=== PATIENT | male | born 1940 | race Caucasian/White ===

== ENCOUNTER 2022-01-16 21:33 | Inpatient (IN) | payer OTHER ==
[2022-01-16] MEDS ORDERED: amLODIPine BESYLATE 5 MG TABLET (FP) PO ONE (23:29)
[2022-01-17] MEDS ORDERED: COLCHICINE 0.6 MG TAB PO ONE (00:23)
[2022-01-17] MEDS ORDERED: ceFAZolin 2 GRAM PREMIX BAG IVPB ONE (00:26)
[2022-01-17] MEDS ORDERED: COLCHICINE 0.6 MG TAB ONE (00:45)
[2022-01-17 00:48] LABS: BASO % 0.5 % (0-2.0); EOS % 0.6 % (0-4.5); HEMATOCRIT 38.2 % (35.4-49); HEMOGLOBIN 13.2 GM/dL (11.7-16.9); LYMPH % 10.9 % (8-40); MCHC 34.7 g/dl (32.0-35.9); MEAN CELL VOLUME 89.3 fl (80-96); MEAN PLT VOLUME 9.7 fl (7.5-11.1); MONO % 10.5 % (3.8-10.2); NEUT % 77.5 % (42.8-82.8); PLATELET COUNT 224 10^3/uL (134-434); RBC 4.27 M/mm3 (4.00-5.60); RDW 12.8 % (11.9-15.9); WHITE BLOOD COUNT 10.1 K/mm3 (4.0-10.0)
[2022-01-17 01:18] LABS: ALBUMIN 3.9 g/dl (3.4-5.0)
[2022-01-17 01:19] LABS: BLOOD UREA NITROGEN 25.2 mg/dL (7-18)
[2022-01-17 01:21] LABS: URIC ACID 3.3 mg/dL (2.6-7.2)
[2022-01-17 01:23] LABS: BILIRUBIN,TOTAL 0.7 mg/dL (0.2-1); TOT PROT 7.8 g/dl (6.4-8.2)
[2022-01-17 01:51] LABS: ERYTHROCYTE SEDIMENTATION RATE 79 mm/hr (0-20)
[2022-01-17] MEDS ORDERED: KETOROLAC TROMETHAMINE 15 MG/ML VIAL IVPUSH ONE (02:55)
[2022-01-17] MEDS ORDERED: CEFAZOLIN SODIUM 2 GM in DEXTROSE 5%-WATER 100 ML IVPB ONE (03:00)
[2022-01-17] MEDS ORDERED: ACETAMINOPHEN 325 MG TABLET (FP) PO PRN (03:47)
[2022-01-17] MEDS ORDERED: KETOROLAC TROMETHAMINE 15 MG/ML VIAL ONE (04:38)
[2022-01-17] MEDS: ENOXAPARIN NA (PORCINE) 40 MG/0.4 ML DISP.SYRIN SQ SCH (09:32)
[2022-01-17 10:23] VITALS: BMI 23.3
[2022-01-17] MEDS ORDERED: INSULIN (NOVOLOG) ASPART 100 UNITS/ML 10ML VIAL ONE (11:44)
[2022-01-17] MEDS: INSULIN SLIDING SCALE (NOVOLOG) 1 VIAL SQ SCH ×2 (11:45→17:20)
[2022-01-17 12:52] LABS: BASO % 0.6 % (0-2.0); EOS % 1.3 % (0-4.5); HEMATOCRIT 32.7 % (35.4-49); HEMOGLOBIN 11.7 GM/dL (11.7-16.9); LYMPH % 13.6 % (8-40); MCH 31.6 pg (25.7-33.7); MCHC 35.7 g/dl (32.0-35.9); MEAN CELL VOLUME 88.5 fl (80-96); MEAN PLT VOLUME 9.4 fl (7.5-11.1); MONO % 13.4 % (3.8-10.2); NEUT % 71.1 % (42.8-82.8); PLATELET COUNT 192 10^3/uL (134-434); RBC 3.69 M/mm3 (4.00-5.60); RDW 12.5 % (11.9-15.9); WHITE BLOOD COUNT 8.5 K/mm3 (4.0-10.0)
[2022-01-17 13:12] LABS: CALCIUM 8.4 mg/dL (8.5-10.1)
[2022-01-17 13:13] LABS: BLOOD UREA NITROGEN 25.8 mg/dL (7-18)
[2022-01-17 13:17] LABS: BILIRUBIN,TOTAL 0.5 mg/dL (0.2-1); TOT PROT 6.1 g/dl (6.4-8.2)
[2022-01-17 13:19] LABS: ALBUMIN 2.9 g/dl (3.4-5.0)
[2022-01-17] MEDS ORDERED: CEFAZOLIN 2 GM in DEXTROSE 5%-WATER 100 ML IVPB SCH (13:53)
[2022-01-17] MEDS ORDERED: ceFAZolin SODIUM 1 GM VIAL ONE ×2 (16:47→21:15)
[2022-01-17] MEDS ORDERED: DEXTROSE 5%-WATER 100 ML IVPB ONE (16:47)
[2022-01-17] MEDS: ASPIRIN 81 MG CHEWABLE TABLETS PO SCH (17:02)
[2022-01-17] MEDS: CEFAZOLIN 2 GM in SODIUM CHLORIDE 100 ML IVPB SCH (17:24)
[2022-01-17] MEDS ORDERED: CEFAZOLIN 2 GM in DEXTROSE 5%-WATER - 50 ML IVPB SCH (18:00)
[2022-01-17] MEDS ORDERED: SODIUM CHLORIDE 100 ML IVPB ONE (21:15)
[2022-01-17] MEDS: ATORVASTATIN CA 20 MG TABLET (FP) PO SCH (21:39)
[2022-01-17] MEDS: INSULIN (LEVEMIR) 100 UNITS/ML UNITS SQ SCH (21:39)
[2022-01-18] MEDS ORDERED: MELATONIN 5 MG TABLETS PO ONE (01:06)
[2022-01-18] MEDS ORDERED: SODIUM CHLORIDE 100 ML IVPB ONE ×2 (01:11→09:26)
[2022-01-18] MEDS ORDERED: ceFAZolin SODIUM 1 GM VIAL ONE ×2 (01:11→09:26)
[2022-01-18] MEDS: CEFAZOLIN 2 GM in SODIUM CHLORIDE 100 ML IVPB SCH ×2 (01:24→09:36)
[2022-01-18] MEDS: INSULIN (LEVEMIR) 100 UNITS/ML UNITS SQ SCH ×2 (06:21→22:41)
[2022-01-18] MEDS: INSULIN SLIDING SCALE (NOVOLOG) 1 VIAL SQ SCH ×3 (06:21→17:25)
[2022-01-18] MEDS: ASPIRIN 81 MG CHEWABLE TABLETS PO SCH (09:36)
[2022-01-18] MEDS: ENOXAPARIN NA (PORCINE) 40 MG/0.4 ML DISP.SYRIN SQ SCH (09:36)
[2022-01-18 11:06] LABS: BASO % 0.8 % (0-2.0); EOS % 1.8 % (0-4.5); HEMATOCRIT 36.4 % (35.4-49); HEMOGLOBIN 12.5 GM/dL (11.7-16.9); MCH 30.5 pg (25.7-33.7); MCHC 34.4 g/dl (32.0-35.9); MEAN CELL VOLUME 88.7 fl (80-96); MEAN PLT VOLUME 10.2 fl (7.5-11.1); MONO % 13.6 % (3.8-10.2); NEUT % 65.8 % (42.8-82.8); PLATELET COUNT 220 10^3/uL (134-434); RDW 12.5 % (11.9-15.9); WHITE BLOOD COUNT 7.6 K/mm3 (4.0-10.0)
[2022-01-18 11:41] LABS: ALBUMIN 3.3 g/dl (3.4-5.0); BLOOD UREA NITROGEN 22.4 mg/dL (7-18); CALCIUM 8.6 mg/dL (8.5-10.1)
[2022-01-18 11:45] LABS: BILIRUBIN,TOTAL 0.4 mg/dL (0.2-1); CREATININE 0.9 mg/dL (0.55-1.3); PHOSPHOROUS 2.7 mg/dL (2.5-4.9); TOT PROT 6.8 g/dl (6.4-8.2)
[2022-01-18 13:29] LABS: ERYTHROCYTE SEDIMENTATION RATE 44 mm/hr (0-20)
[2022-01-18] MEDS ORDERED: VANCOMYCIN 1 GM in D5W (PRE-DOCKED) 1,000 MG/250 ML IVPB SCH (16:15)
[2022-01-18] MEDS: INSULIN (NOVOLOG) ASPART 100 UNITS/ML 10ML VIAL SQ SCH (17:26)
[2022-01-18] MEDS: ATORVASTATIN CA 20 MG TABLET (FP) PO SCH (22:42)
[2022-01-19] MEDS: INSULIN (LEVEMIR) 100 UNITS/ML UNITS SQ SCH ×2 (06:32→22:13)
[2022-01-19] MEDS: INSULIN SLIDING SCALE (NOVOLOG) 1 VIAL SQ SCH ×3 (06:34→17:05)
[2022-01-19] MEDS: INSULIN (NOVOLOG) ASPART 100 UNITS/ML 10ML VIAL SQ SCH ×3 (06:34→17:00)
[2022-01-19 08:57] LABS: BASO % 0.7 % (0-2.0); EOS % 2.3 % (0-4.5); HEMATOCRIT 35.6 % (35.4-49); HEMOGLOBIN 12.6 GM/dL (11.7-16.9); LYMPH % 19.7 % (8-40); MCH 30.9 pg (25.7-33.7); MCHC 35.4 g/dl (32.0-35.9); MEAN CELL VOLUME 87.5 fl (80-96); MEAN PLT VOLUME 9.2 fl (7.5-11.1); MONO % 14.1 % (3.8-10.2); NEUT % 63.2 % (42.8-82.8); PLATELET COUNT 225 10^3/uL (134-434); RBC 4.07 M/mm3 (4.00-5.60); RDW 12.8 % (11.9-15.9); WHITE BLOOD COUNT 6.7 K/mm3 (4.0-10.0)
[2022-01-19 09:21] LABS: BLOOD UREA NITROGEN 17.8 mg/dL (7-18); CALCIUM 8.5 mg/dL (8.5-10.1)
[2022-01-19 09:23] LABS: ALBUMIN 2.9 g/dl (3.4-5.0)
[2022-01-19 09:25] LABS: CREATININE 0.7 mg/dL (0.55-1.3)
[2022-01-19 09:27] LABS: BILIRUBIN,TOTAL 0.5 mg/dL (0.2-1); TOT PROT 6.5 g/dl (6.4-8.2)
[2022-01-19] MEDS: ENOXAPARIN NA (PORCINE) 40 MG/0.4 ML DISP.SYRIN SQ SCH (10:01)
[2022-01-19] MEDS: ASPIRIN 81 MG CHEWABLE TABLETS PO SCH (10:01)
[2022-01-19] MEDS: CEFAZOLIN SODIUM 2 GM in DEXTROSE 5%-WATER 100 ML IVPB SCH ×2 (11:46→17:01)
[2022-01-19] MEDS: VANCOMYCIN 1 GM in D5W (PRE-DOCKED) 1,000 MG/250 ML IVPB SCH ×2 (12:04→12:05)
[2022-01-19] MEDS ORDERED: AMPICILLIN NA/SULBACTAM NA 3 GM VIAL ONE ×2 (18:01→20:55)
[2022-01-19] MEDS ORDERED: SODIUM CHLORIDE 100 ML IVPB ONE ×2 (18:02→20:56)
[2022-01-19] MEDS: AMPICILLIN NA/SULBACTAM NA 3 GM in SODIUM CHLORIDE 100 ML IVPB SCH ×2 (18:15→22:14)
[2022-01-19] MEDS: ATORVASTATIN CA 20 MG TABLET (FP) PO SCH (22:14)
[2022-01-20] MEDS: AMPICILLIN NA/SULBACTAM NA 3 GM in SODIUM CHLORIDE 100 ML IVPB SCH ×4 (03:46→21:02)
[2022-01-20] MEDS: INSULIN SLIDING SCALE (NOVOLOG) 1 VIAL SQ SCH ×3 (06:32→17:28)
[2022-01-20] MEDS: INSULIN (LEVEMIR) 100 UNITS/ML UNITS SQ SCH ×2 (06:32→21:03)
[2022-01-20] MEDS: INSULIN (NOVOLOG) ASPART 100 UNITS/ML 10ML VIAL SQ SCH ×3 (06:32→17:27)
[2022-01-20 09:23] LABS: BASO % 0.8 % (0-2.0); EOS % 3.5 % (0-4.5); HEMATOCRIT 34.3 % (35.4-49); HEMOGLOBIN 12.1 GM/dL (11.7-16.9); LYMPH % 21.6 % (8-40); MCH 30.7 pg (25.7-33.7); MCHC 35.3 g/dl (32.0-35.9); MEAN CELL VOLUME 86.9 fl (80-96); MONO % 13.7 % (3.8-10.2); NEUT % 60.4 % (42.8-82.8); PLATELET COUNT 238 10^3/uL (134-434); RBC 3.94 M/mm3 (4.00-5.60); RDW 12.6 % (11.9-15.9); WHITE BLOOD COUNT 7.1 K/mm3 (4.0-10.0)
[2022-01-20] MEDS ORDERED: SODIUM CHLORIDE 100 ML IVPB ONE ×3 (10:06→20:56)
[2022-01-20] MEDS ORDERED: AMPICILLIN NA/SULBACTAM NA 3 GM VIAL ONE ×3 (10:06→20:56)
[2022-01-20 10:09] LABS: ALBUMIN 2.9 g/dl (3.4-5.0); BLOOD UREA NITROGEN 15.7 mg/dL (7-18)
[2022-01-20] MEDS: ASPIRIN 81 MG CHEWABLE TABLETS PO SCH (10:09)
[2022-01-20] MEDS: ENOXAPARIN NA (PORCINE) 40 MG/0.4 ML DISP.SYRIN SQ SCH (10:09)
[2022-01-20 10:11] LABS: CALCIUM 8.6 mg/dL (8.5-10.1)
[2022-01-20 10:12] LABS: CREATININE 0.8 mg/dL (0.55-1.3)
[2022-01-20 10:14] LABS: TOT PROT 6.5 g/dl (6.4-8.2)
[2022-01-20 10:18] LABS: BILIRUBIN,TOTAL 0.7 mg/dL (0.2-1)
[2022-01-20] MEDS: ATORVASTATIN CA 20 MG TABLET (FP) PO SCH (21:02)
[2022-01-21] MEDS ORDERED: AMPICILLIN NA/SULBACTAM NA 3 GM VIAL ONE ×4 (02:24→20:57)
[2022-01-21] MEDS ORDERED: SODIUM CHLORIDE 100 ML IVPB ONE ×4 (02:24→20:58)
[2022-01-21] MEDS: AMPICILLIN NA/SULBACTAM NA 3 GM in SODIUM CHLORIDE 100 ML IVPB SCH ×4 (02:30→21:21)
[2022-01-21] MEDS: INSULIN SLIDING SCALE (NOVOLOG) 1 VIAL SQ SCH ×3 (06:37→17:38)
[2022-01-21] MEDS: INSULIN (LEVEMIR) 100 UNITS/ML UNITS SQ SCH ×2 (06:37→21:21)
[2022-01-21] MEDS: INSULIN (NOVOLOG) ASPART 100 UNITS/ML 10ML VIAL SQ SCH ×3 (06:38→17:38)
[2022-01-21 09:25] LABS: BASO % 0.9 % (0-2.0); EOS % 5.4 % (0-4.5); HEMATOCRIT 34.3 % (35.4-49); HEMOGLOBIN 12.1 GM/dL (11.7-16.9); LYMPH % 22.6 % (8-40); MCH 30.6 pg (25.7-33.7); MCHC 35.2 g/dl (32.0-35.9); MEAN PLT VOLUME 9.3 fl (7.5-11.1); MONO % 11.1 % (3.8-10.2); PLATELET COUNT 257 10^3/uL (134-434); RBC 3.94 M/mm3 (4.00-5.60); RDW 12.6 % (11.9-15.9); WHITE BLOOD COUNT 6.5 K/mm3 (4.0-10.0)
[2022-01-21] MEDS: ASPIRIN 81 MG CHEWABLE TABLETS PO SCH (10:00)
[2022-01-21] MEDS: ENOXAPARIN NA (PORCINE) 40 MG/0.4 ML DISP.SYRIN SQ SCH (10:01)
[2022-01-21 10:23] LABS: CALCIUM 8.7 mg/dL (8.5-10.1)
[2022-01-21 10:24] LABS: ALBUMIN 2.8 g/dl (3.4-5.0); BLOOD UREA NITROGEN 16.5 mg/dL (7-18)
[2022-01-21 10:26] LABS: CREATININE 0.9 mg/dL (0.55-1.3)
[2022-01-21 10:27] LABS: BILIRUBIN,TOTAL 0.4 mg/dL (0.2-1)
[2022-01-21 10:28] LABS: TOT PROT 6.2 g/dl (6.4-8.2)
[2022-01-21] MEDS ORDERED: INSULIN (NOVOLOG) ASPART 100 UNITS/ML 10ML VIAL ONE (12:37)
[2022-01-21] MEDS: VANCOMYCIN 1 GRAM (PRE-DOCKED) 1,000 MG/250 ML BAG IVPB SCH (18:30)
[2022-01-21] MEDS: ATORVASTATIN CA 20 MG TABLET (FP) PO SCH (21:22)
[2022-01-22] MEDS: AMPICILLIN NA/SULBACTAM NA 3 GM in SODIUM CHLORIDE 100 ML IVPB SCH ×3 (02:27→14:41)
[2022-01-22] MEDS: VANCOMYCIN 1 GRAM (PRE-DOCKED) 1,000 MG/250 ML BAG IVPB SCH ×2 (05:55→17:54)
[2022-01-22] MEDS: INSULIN (LEVEMIR) 100 UNITS/ML UNITS SQ SCH ×2 (07:22→22:17)
[2022-01-22] MEDS: INSULIN (NOVOLOG) ASPART 100 UNITS/ML 10ML VIAL SQ SCH ×3 (07:23→17:15)
[2022-01-22] MEDS: INSULIN SLIDING SCALE (NOVOLOG) 1 VIAL SQ SCH ×3 (07:24→17:15)
[2022-01-22] MEDS: ASPIRIN 81 MG CHEWABLE TABLETS PO SCH (09:16)
[2022-01-22] MEDS: ENOXAPARIN NA (PORCINE) 40 MG/0.4 ML DISP.SYRIN SQ SCH (09:16)
[2022-01-22] MEDS ORDERED: INSULIN (NOVOLOG) ASPART 100 UNITS/ML 10ML VIAL ONE (12:59)
[2022-01-22] MEDS ORDERED: AMPICILLIN NA/SULBACTAM NA 3 GM VIAL ONE (14:37)
[2022-01-22] MEDS ORDERED: SODIUM CHLORIDE 100 ML IVPB ONE (14:38)
[2022-01-22] MEDS ORDERED: PIPERACILLIN/TAZOBACTAM 3.375 GM VIAL IVPB ONE (17:00)
[2022-01-22] MEDS ORDERED: DEXTROSE 5%-WATER - 50 ML IVPB ONE (17:01)
[2022-01-22] MEDS: PIPERACILLIN/TAZOB 3.375 GM 3.375 GM in DEXTROSE 5%-WATER - 50 ML IVPB SCH (17:14)
[2022-01-22] MEDS: ATORVASTATIN CA 20 MG TABLET (FP) PO SCH (22:18)
[2022-01-23] MEDS ORDERED: PIPERACILLIN/TAZOBACTAM 3.375 GM VIAL IVPB ONE ×3 (01:52→17:04)
[2022-01-23] MEDS ORDERED: DEXTROSE 5%-WATER - 50 ML IVPB ONE ×3 (01:53→17:04)
[2022-01-23] MEDS: PIPERACILLIN/TAZOB 3.375 GM 3.375 GM in DEXTROSE 5%-WATER - 50 ML IVPB SCH ×3 (01:55→17:06)
[2022-01-23] MEDS: VANCOMYCIN 1 GRAM (PRE-DOCKED) 1,000 MG/250 ML BAG IVPB SCH ×2 (06:52→17:47)
[2022-01-23] MEDS: INSULIN (LEVEMIR) 100 UNITS/ML UNITS SQ SCH ×2 (06:52→21:11)
[2022-01-23] MEDS: INSULIN SLIDING SCALE (NOVOLOG) 1 VIAL SQ SCH ×3 (06:53→16:42)
[2022-01-23] MEDS: INSULIN (NOVOLOG) ASPART 100 UNITS/ML 10ML VIAL SQ SCH ×3 (06:53→16:43)
[2022-01-23] MEDS: ENOXAPARIN NA (PORCINE) 40 MG/0.4 ML DISP.SYRIN SQ SCH (09:15)
[2022-01-23] MEDS: ASPIRIN 81 MG CHEWABLE TABLETS PO SCH (09:15)
[2022-01-23 10:33] LABS: HEMATOCRIT 34.7 % (35.4-49); HEMOGLOBIN 12.2 GM/dL (11.7-16.9); MCH 30.7 pg (25.7-33.7); MCHC 35.1 g/dl (32.0-35.9); MEAN CELL VOLUME 87.4 fl (80-96); PLATELET COUNT 301 10^3/uL (134-434); RBC 3.97 M/mm3 (4.00-5.60); RDW 12.8 % (11.9-15.9); WHITE BLOOD COUNT 9.2 K/mm3 (4.0-10.0)
[2022-01-23 11:16] LABS: CALCIUM 8.5 mg/dL (8.5-10.1)
[2022-01-23] MEDS: ATORVASTATIN CA 20 MG TABLET (FP) PO SCH (21:11)
[2022-01-23] MEDS ORDERED: INSULIN (NOVOLOG) ASPART 100 UNITS/ML 10ML VIAL SQ ONE (22:13)
[2022-01-24] MEDS ORDERED: PIPERACILLIN/TAZOBACTAM 3.375 GM VIAL IVPB ONE ×3 (01:01→16:30)
[2022-01-24] MEDS ORDERED: DEXTROSE 5%-WATER - 50 ML IVPB ONE ×3 (01:01→16:30)
[2022-01-24] MEDS: PIPERACILLIN/TAZOB 3.375 GM 3.375 GM in DEXTROSE 5%-WATER - 50 ML IVPB SCH ×3 (01:04→17:05)
[2022-01-24] MEDS: VANCOMYCIN 1 GRAM (PRE-DOCKED) 1,000 MG/250 ML BAG IVPB SCH ×2 (05:46→17:51)
[2022-01-24] MEDS: INSULIN (LEVEMIR) 100 UNITS/ML UNITS SQ SCH ×2 (07:16→21:25)
[2022-01-24] MEDS: INSULIN (NOVOLOG) ASPART 100 UNITS/ML 10ML VIAL SQ SCH ×3 (07:16→17:06)
[2022-01-24] MEDS: INSULIN SLIDING SCALE (NOVOLOG) 1 VIAL SQ SCH ×3 (07:16→17:06)
[2022-01-24] MEDS: ASPIRIN 81 MG CHEWABLE TABLETS PO SCH (09:22)
[2022-01-24] MEDS: ENOXAPARIN NA (PORCINE) 40 MG/0.4 ML DISP.SYRIN SQ SCH (09:22)
[2022-01-24 09:33] LABS: HEMATOCRIT 34.9 % (35.4-49); HEMOGLOBIN 12.2 GM/dL (11.7-16.9); MCH 30.5 pg (25.7-33.7); MCHC 35.1 g/dl (32.0-35.9); MEAN CELL VOLUME 87.1 fl (80-96); MEAN PLT VOLUME 8.8 fl (7.5-11.1); PLATELET COUNT 317 10^3/uL (134-434); RBC 4.01 M/mm3 (4.00-5.60); RDW 12.6 % (11.9-15.9); WHITE BLOOD COUNT 8.5 K/mm3 (4.0-10.0)
[2022-01-24 09:49] LABS: CALCIUM 8.9 mg/dL (8.5-10.1)
[2022-01-24 09:50] LABS: BLOOD UREA NITROGEN 18.1 mg/dL (7-18)
[2022-01-24 13:00] LABS: GLUCOSE,RANDOM 433 mg/dL (74-106)
[2022-01-24] MEDS: ATORVASTATIN CA 20 MG TABLET (FP) PO SCH (21:26)
[2022-01-24] MEDS ORDERED: INSULIN (NOVOLOG) ASPART 100 UNITS/ML 10ML VIAL SQ ONE (21:34)
[2022-01-25] MEDS ORDERED: DEXTROSE 5%-WATER - 50 ML IVPB ONE ×4 (01:50→17:12)
[2022-01-25] MEDS ORDERED: PIPERACILLIN/TAZOBACTAM 3.375 GM VIAL IVPB ONE ×4 (01:50→17:12)
[2022-01-25] MEDS: PIPERACILLIN/TAZOB 3.375 GM 3.375 GM in DEXTROSE 5%-WATER - 50 ML IVPB SCH ×3 (02:15→17:29)
[2022-01-25] MEDS: INSULIN SLIDING SCALE (NOVOLOG) 1 VIAL SQ SCH ×3 (07:03→17:43)
[2022-01-25] MEDS: INSULIN (NOVOLOG) ASPART 100 UNITS/ML 10ML VIAL SQ SCH ×3 (07:04→18:09)
[2022-01-25] MEDS: INSULIN (LEVEMIR) 100 UNITS/ML UNITS SQ SCH ×2 (07:06→21:49)
[2022-01-25] MEDS: VANCOMYCIN/WATER FOR INJ (PEG) 1,000 MG/200 ML BAG IVPB SCH ×2 (07:08→18:10)
[2022-01-25 09:28] LABS: HEMATOCRIT 34.6 % (35.4-49); MCH 30.5 pg (25.7-33.7); MCHC 34.6 g/dl (32.0-35.9); MEAN PLT VOLUME 8.8 fl (7.5-11.1); PLATELET COUNT 340 10^3/uL (134-434); RBC 3.93 M/mm3 (4.00-5.60); RDW 12.7 % (11.9-15.9); WHITE BLOOD COUNT 8.3 K/mm3 (4.0-10.0)
[2022-01-25] MEDS: ASPIRIN 81 MG CHEWABLE TABLETS PO SCH (09:55)
[2022-01-25] MEDS: ENOXAPARIN NA (PORCINE) 40 MG/0.4 ML DISP.SYRIN SQ SCH (09:55)
[2022-01-25 10:04] LABS: CALCIUM 8.6 mg/dL (8.5-10.1)
[2022-01-25 10:05] LABS: BLOOD UREA NITROGEN 19.7 mg/dL (7-18)
[2022-01-25] MEDS: ATORVASTATIN CA 20 MG TABLET (FP) PO SCH (21:49)
[2022-01-26] MEDS ORDERED: DEXTROSE 5%-WATER - 50 ML IVPB ONE (01:26)
[2022-01-26] MEDS ORDERED: PIPERACILLIN/TAZOBACTAM 3.375 GM VIAL IVPB ONE (01:26)
[2022-01-26] MEDS: PIPERACILLIN/TAZOB 3.375 GM 3.375 GM in DEXTROSE 5%-WATER - 50 ML IVPB SCH (01:37)
[2022-01-26] MEDS: VANCOMYCIN/WATER FOR INJ (PEG) 1,000 MG/200 ML BAG IVPB SCH (05:35)
[2022-01-26] MEDS: INSULIN (LEVEMIR) 100 UNITS/ML UNITS SQ SCH ×2 (06:13→22:04)
[2022-01-26] MEDS: INSULIN (NOVOLOG) ASPART 100 UNITS/ML 10ML VIAL SQ SCH ×3 (06:13→18:52)
[2022-01-26] MEDS: INSULIN SLIDING SCALE (NOVOLOG) 1 VIAL SQ SCH ×3 (06:13→18:52)
[2022-01-26] MEDS: VANCOMYCIN 1 GRAM (PRE-DOCKED) 1,000 MG/250 ML BAG IVPB SCH (07:03)
[2022-01-26 08:37] LABS: BASO % 1.1 % (0-2.0); EOS % 8.3 % (0-4.5); HEMATOCRIT 35.5 % (35.4-49); HEMOGLOBIN 12.3 GM/dL (11.7-16.9); MCH 30.6 pg (25.7-33.7); MCHC 34.7 g/dl (32.0-35.9); MEAN CELL VOLUME 88.1 fl (80-96); MEAN PLT VOLUME 8.7 fl (7.5-11.1); MONO % 10.9 % (3.8-10.2); NEUT % 57.7 % (42.8-82.8); PLATELET COUNT 369 10^3/uL (134-434); RBC 4.03 M/mm3 (4.00-5.60); RDW 12.3 % (11.9-15.9); WHITE BLOOD COUNT 7.9 K/mm3 (4.0-10.0)
[2022-01-26 09:48] LABS: ERYTHROCYTE SEDIMENTATION RATE 96 mm/hr (0-20)
[2022-01-26] MEDS ORDERED: CEFAZOLIN SODIUM 2 GM in DEXTROSE 5%-WATER 100 ML IVPB SCH (10:00)
[2022-01-26] MEDS: ASPIRIN 81 MG CHEWABLE TABLETS PO SCH (10:16)
[2022-01-26] MEDS: ENOXAPARIN NA (PORCINE) 40 MG/0.4 ML DISP.SYRIN SQ SCH (10:16)
[2022-01-26] MEDS ORDERED: INSULIN (LEVEMIR) 100 UNITS/ML UNITS SQ SCH (10:42)
[2022-01-26] MEDS ORDERED: LISINOPRIL 5 MG TABLET PO SCH (10:49)
[2022-01-26 13:31] LABS: BILIRUBIN,TOTAL 0.4 mg/dL (0.2-1)
[2022-01-26 13:34] LABS: BLOOD UREA NITROGEN 19.8 mg/dL (7-18); TOT PROT 7.3 g/dl (6.4-8.2)
[2022-01-26] MEDS ORDERED: MIDAZOLAM HCL 2 MG/2 ML SINGLE DOSE VIAL ONE (14:47)
[2022-01-26] MEDS ORDERED: HEPARIN NA (PORCINE) 5,000 UNITS/ML 1ML VIAL ONE (15:31)
[2022-01-26] MEDS ORDERED: LIDOCAINE HCL 1%, 10 MG/ML (20ML VIAL) ONE (15:31)
[2022-01-26] MEDS ORDERED: ceFAZolin SODIUM 1 GM VIAL IVPB ONE (16:21)
[2022-01-26] MEDS ORDERED: hydrALAZINE HCL 20 MG/ML VIAL ONE (17:00)
[2022-01-26] MEDS ORDERED: ONDANSETRON 4 MG/2 ML VIAL IVPUSH PRN (17:46)
[2022-01-26] MEDS ORDERED: CLOPIDOGREL BISULFATE 75 MG TABLET (FP) ONE (17:47)
[2022-01-26] MEDS ORDERED: CLOPIDOGREL BISULFATE 75 MG TABLET (FP) PO ONE (17:55)
[2022-01-26] MEDS ORDERED: LACTATED RINGERS SOLUTION 1,000 ML IV SCH (18:00)
[2022-01-26] MEDS: CLOPIDOGREL BISULFATE 75 MG TABLET (FP) PO SCH (18:35)
[2022-01-26] MEDS: CEFAZOLIN SODIUM 2 GM in DEXTROSE 5%-WATER 100 ML IVPB SCH (18:41)
[2022-01-26] MEDS: ATORVASTATIN CA 20 MG TABLET (FP) PO SCH (22:04)
[2022-01-26] MEDS ORDERED: INSULIN (NOVOLOG) ASPART 100 UNITS/ML 10ML VIAL SQ ONE (22:18)
[2022-01-27] MEDS: CEFAZOLIN SODIUM 2 GM in DEXTROSE 5%-WATER 100 ML IVPB SCH ×3 (03:14→17:01)
[2022-01-27] MEDS: INSULIN (LEVEMIR) 100 UNITS/ML UNITS SQ SCH ×2 (06:27→21:17)
[2022-01-27] MEDS: INSULIN (NOVOLOG) ASPART 100 UNITS/ML 10ML VIAL SQ SCH ×3 (06:28→17:07)
[2022-01-27] MEDS: INSULIN SLIDING SCALE (NOVOLOG) 1 VIAL SQ SCH ×3 (06:29→17:07)
[2022-01-27] MEDS: CLOPIDOGREL BISULFATE 75 MG TABLET (FP) PO SCH (09:54)
[2022-01-27] MEDS: ASPIRIN 81 MG CHEWABLE TABLETS PO SCH (09:54)
[2022-01-27] MEDS: LISINOPRIL 5 MG TABLET PO SCH (09:54)
[2022-01-27] MEDS: ENOXAPARIN NA (PORCINE) 40 MG/0.4 ML DISP.SYRIN SQ SCH (09:55)
[2022-01-27] MEDS ORDERED: LISINOPRIL 5 MG TABLET PO SCH (10:00)
[2022-01-27 10:22] LABS: BASO % 0.6 % (0-2.0); EOS % 2.8 % (0-4.5); HEMATOCRIT 33.2 % (35.4-49); HEMOGLOBIN 11.6 GM/dL (11.7-16.9); LYMPH % 17.5 % (8-40); MCH 30.3 pg (25.7-33.7); MCHC 34.9 g/dl (32.0-35.9); MEAN CELL VOLUME 86.8 fl (80-96); MEAN PLT VOLUME 8.4 fl (7.5-11.1); MONO % 11.8 % (3.8-10.2); NEUT % 67.3 % (42.8-82.8); PLATELET COUNT 337 10^3/uL (134-434); RBC 3.83 M/mm3 (4.00-5.60); RDW 12.6 % (11.9-15.9); WHITE BLOOD COUNT 8.8 K/mm3 (4.0-10.0)
[2022-01-27 10:44] LABS: ALBUMIN 2.5 g/dl (3.4-5.0); CALCIUM 8.6 mg/dL (8.5-10.1)
[2022-01-27 10:45] LABS: BLOOD UREA NITROGEN 22.6 mg/dL (7-18)
[2022-01-27 10:49] LABS: BILIRUBIN,TOTAL 0.3 mg/dL (0.2-1); TOT PROT 6.3 g/dl (6.4-8.2)
[2022-01-27] MEDS: ACETAMINOPHEN 325 MG TABLET (FP) PO PRN ×2 (17:49→21:09)
[2022-01-27] MEDS ORDERED: INSULIN (NOVOLOG) ASPART 100 UNITS/ML 10ML VIAL ONE (20:58)
[2022-01-27] MEDS: ATORVASTATIN CA 20 MG TABLET (FP) PO SCH (21:10)
[2022-01-28] MEDS: CEFAZOLIN SODIUM 2 GM in DEXTROSE 5%-WATER 100 ML IVPB SCH ×3 (02:25→18:19)
[2022-01-28] MEDS: INSULIN (LEVEMIR) 100 UNITS/ML UNITS SQ SCH (06:15)
[2022-01-28] MEDS: INSULIN (NOVOLOG) ASPART 100 UNITS/ML 10ML VIAL SQ SCH ×3 (06:19→16:50)
[2022-01-28] MEDS: INSULIN SLIDING SCALE (NOVOLOG) 1 VIAL SQ SCH ×3 (06:20→16:50)
[2022-01-28] MEDS: ACETAMINOPHEN 325 MG TABLET (FP) PO PRN ×2 (08:29→16:41)
[2022-01-28 09:43] LABS: BASO % 0.9 % (0-2.0); EOS % 3.6 % (0-4.5); HEMATOCRIT 35.8 % (35.4-49); HEMOGLOBIN 12.2 GM/dL (11.7-16.9); LYMPH % 19.1 % (8-40); MCH 29.9 pg (25.7-33.7); MCHC 34.1 g/dl (32.0-35.9); MEAN CELL VOLUME 87.8 fl (80-96); MEAN PLT VOLUME 8.6 fl (7.5-11.1); MONO % 10.9 % (3.8-10.2); NEUT % 65.5 % (42.8-82.8); PLATELET COUNT 373 10^3/uL (134-434); RBC 4.08 M/mm3 (4.00-5.60); RDW 12.6 % (11.9-15.9); WHITE BLOOD COUNT 7.8 K/mm3 (4.0-10.0)
[2022-01-28 09:57] LABS: ALBUMIN 2.8 g/dl (3.4-5.0); BLOOD UREA NITROGEN 19.8 mg/dL (7-18); CALCIUM 8.8 mg/dL (8.5-10.1)
[2022-01-28 09:58] LABS: BILIRUBIN,TOTAL 0.3 mg/dL (0.2-1)
[2022-01-28 09:59] LABS: TOT PROT 6.9 g/dl (6.4-8.2)
[2022-01-28 10:00] LABS: CREATININE 0.9 mg/dL (0.55-1.3)
[2022-01-28 10:59] LABS: ERYTHROCYTE SEDIMENTATION RATE 80 mm/hr (0-20)
[2022-01-28] MEDS: ASPIRIN 81 MG CHEWABLE TABLETS PO SCH (11:04)
[2022-01-28] MEDS: ENOXAPARIN NA (PORCINE) 40 MG/0.4 ML DISP.SYRIN SQ SCH (11:04)
[2022-01-28] MEDS: LISINOPRIL 5 MG TABLET PO SCH (11:05)
[2022-01-28] MEDS: CLOPIDOGREL BISULFATE 75 MG TABLET (FP) PO SCH (11:05)
[2022-01-28 15:05] VITALS: BP 123/61; PULSE 70; TEMP 98.9
== END 2022-01-28 20:56 | DRG 253 ==
LOC: JER 21:33 → JERBED 01-17 02:23 → J8W 01-17 06:45
PROVIDERS: ADMIT Hospitalist; ATTEND Internal Medicine
PROC: 0JBQ0ZZ Excision of Right Foot Subcutaneous Tissue and Fascia, Open Approach (ICD-10-PCS; 2022-01-23)
PROC: 047P3ZZ Dilation of Right Anterior Tibial Artery, Percutaneous Approach (ICD-10-PCS; 2022-01-26)
PROC: 047R3ZZ Dilation of Right Posterior Tibial Artery, Percutaneous Approach (ICD-10-PCS; 2022-01-26)
PROC: 3E05317 Introduction of Other Thrombolytic into Peripheral Artery, Percutaneous Approach (ICD-10-PCS; 2022-01-26)
PROC: B41DZZZ Fluoroscopy of Aorta and Bilateral Lower Extremity Arteries (ICD-10-PCS; 2022-01-26)
PROC: X27 New Technology, Cardiovascular System, Dilation (ICD-10-PCS; principal; 2022-01-26 15:00)
PROC: 02HV33Z Insertion of Infusion Device into Superior Vena Cava, Percutaneous Approach (ICD-10-PCS; 2022-01-28)
PROC: B518ZZA Fluoroscopy of Superior Vena Cava, Guidance (ICD-10-PCS; 2022-01-28)
PROC: 3E033GC Introduction of Other Therapeutic Substance into Peripheral Vein, Percutaneous Approach (ICD-10-PCS; 2022-01-28)
DX: E11.52 Type 2 diabetes mellitus with diabetic peripheral angiopathy with gangrene (principal); L03.115 Cellulitis of right lower limb; M86.9 Osteomyelitis, unspecified; I96 Gangrene, not elsewhere classified; E11.69 Type 2 diabetes mellitus with other specified complication; I16.0 Hypertensive urgency; E11.65 Type 2 diabetes mellitus with hyperglycemia; B35.1 Tinea unguium; A49.01 Methicillin susceptible Staphylococcus aureus infection, unspecified site; E11.622 Type 2 diabetes mellitus with other skin ulcer; E11.40 Type 2 diabetes mellitus with diabetic neuropathy, unspecified; I77.1 Stricture of artery; I10 Essential (primary) hypertension; L97.519 Non-pressure chronic ulcer of other part of right foot with unspecified severity; Z79.4 Long term (current) use of insulin; L03.031 Cellulitis of right toe; M79.671 Pain in right foot; D72.829 Elevated white blood cell count, unspecified; L08.9 Local infection of the skin and subcutaneous tissue, unspecified
CPT/HCPCS: 36415; 36569; 71045-TC-FY; 73630-TC-RT-FY; 73718-TC-RT; 76000-TC-FY; 80048; 80053; 80061; 82947; 82962; 83036; 83735; 84100; 84550; 85025; 85027; 85651; 86140; 87040; 87070; 87186; 87205; 93005; 93010; 93926-TC; 94760; 97116-GP; 97161-GP; 99285-25; C9803-CS; J1644; U0003; U0005

== ENCOUNTER 2022-04-19 09:18 | Inpatient (IN) | payer OTHER, BC ==
[2022-04-19] MEDS ORDERED: ONDANSETRON 4 MG/2 ML VIAL IVPUSH ONE (09:35)
[2022-04-19] MEDS ORDERED: SODIUM CHLORIDE 0.9% 500 ML INFUS.BAG IV ONE (09:35)
[2022-04-19] MEDS ORDERED: MECLIZINE HCL 25 MG TABLET (FP) PO ONE (09:39)
[2022-04-19] MEDS ORDERED: ONDANSETRON 4 MG/2 ML VIAL ONE (09:52)
[2022-04-19] MEDS ORDERED: MECLIZINE HCL 25 MG TABLET (FP) ONE (09:52)
[2022-04-19 10:23] LABS: VENOUS BASE EXCESS 1.7 mmol/L (-2-2); VENOUS O2 SATURATION 23.2 % (70-80); VENOUS PH 7.351 (7.310-7.410)
[2022-04-19 10:49] LABS: BASO % 0.8 % (0-2.0); EOS % 0.7 % (0-4.5); HEMATOCRIT 37.4 % (35.4-49); HEMOGLOBIN 12.6 GM/dL (11.7-16.9); LYMPH % 14.8 % (8-40); MCH 30.2 pg (25.7-33.7); MCHC 33.6 g/dl (32.0-35.9); MEAN PLT VOLUME 9.1 fl (7.5-11.1); MONO % 6.3 % (3.8-10.2); NEUT % 77.4 % (42.8-82.8); PLATELET COUNT 238 10^3/uL (134-434); RBC 4.16 M/mm3 (4.00-5.60); RDW 14.5 % (11.9-15.9); WHITE BLOOD COUNT 6.2 K/mm3 (4.0-10.0)
[2022-04-19 10:59] LABS: CALCIUM 9.3 mg/dL (8.5-10.1)
[2022-04-19 11:01] LABS: ALBUMIN 3.8 g/dl (3.4-5.0); MAGNESIUM 2.7 mg/dL (1.8-2.4)
[2022-04-19 11:03] LABS: CREATININE 1.1 mg/dL (0.55-1.3)
[2022-04-19 11:04] LABS: BILIRUBIN,TOTAL 0.4 mg/dL (0.2-1); TOT PROT 7.4 g/dl (6.4-8.2)
[2022-04-19 11:34] LABS: PH,URINE 8.5 (5.0-8.0); URINE APPEARANCE CLEAR; URINE BILIRUBIN NEGATIVE (NEGATIVE); URINE COLOR YELLOW; URINE GLUCOSE (UA) 2+ (NEGATIVE); URINE KETONE NEGATIVE (NEGATIVE); URINE LEUK ESTERASE NEGATIVE (NEGATIVE); URINE NITRITE NEGATIVE (NEGATIVE); URINE PROTEIN TRACE (NEGATIVE); URINE UROBILINOGEN 0.2 mg/dL (0.2-1.0)
[2022-04-19 17:22] VITALS: BMI 22.7
[2022-04-19] MEDS ORDERED: FLU VACC QS2022-23(6MOS UP)/PF 60 MCG/0.5 ML SYRINGE IM ONE (17:22)
[2022-04-19] MEDS ORDERED: PNEUMOC 20-VAL CONJ-DIP CRM/PF 0.5 ML SYRINGE IM ONE (17:22)
[2022-04-19] MEDS: INSULIN SLIDING SCALE (NOVOLOG) 1 VIAL SQ SCH (21:56)
[2022-04-19] MEDS ORDERED: ATORVASTATIN CA 20 MG TABLET (FP) PO SCH (22:00)
[2022-04-20] MEDS: INSULIN SLIDING SCALE (NOVOLOG) 1 VIAL SQ SCH ×3 (06:13→17:54)
[2022-04-20 08:44] LABS: BASO % 1.1 % (0-2.0); EOS % 2.1 % (0-4.5); HEMATOCRIT 33.5 % (35.4-49); HEMOGLOBIN 11.4 GM/dL (11.7-16.9); LYMPH % 27.3 % (8-40); MCH 30.4 pg (25.7-33.7); MEAN CELL VOLUME 89.3 fl (80-96); MEAN PLT VOLUME 9.2 fl (7.5-11.1); MONO % 11.5 % (3.8-10.2); PLATELET COUNT 221 10^3/uL (134-434); RBC 3.75 M/mm3 (4.00-5.60); RDW 14.3 % (11.9-15.9); WHITE BLOOD COUNT 5.3 K/mm3 (4.0-10.0)
[2022-04-20 09:12] LABS: BLOOD UREA NITROGEN 20.6 mg/dL (7-18); CALCIUM 8.5 mg/dL (8.5-10.1); MAGNESIUM 2.4 mg/dL (1.8-2.4)
[2022-04-20 09:15] LABS: PHOSPHOROUS 3.2 mg/dL (2.5-4.9)
[2022-04-20 09:16] LABS: BILIRUBIN,TOTAL 0.4 mg/dL (0.2-1); TOT PROT 6.1 g/dl (6.4-8.2)
[2022-04-20 09:46] VITALS: PULSE 75; RESP 18
[2022-04-20] MEDS ORDERED: LISINOPRIL 10 MG TABLET PO SCH (10:00)
[2022-04-20] MEDS ORDERED: CLOPIDOGREL BISULFATE 75 MG TABLET (FP) PO SCH (10:00)
[2022-04-20] MEDS ORDERED: ENOXAPARIN NA (PORCINE) 40 MG/0.4 ML DISP.SYRIN SQ SCH (10:00)
[2022-04-20 15:21] VITALS: BP 154/88; TEMP 97.8
== END 2022-04-20 20:56 | disposition home or self-care (01) | DRG 149 ==
LOC: JER 09:18 → UNDOADMIN 11:58 → JERBED 11:58 → J4W 16:22
PROVIDERS: ADMIT Family Medicine; ATTEND Internal Medicine
DX: H81.10 Benign paroxysmal vertigo, unspecified ear (principal); I10 Essential (primary) hypertension; E11.9 Type 2 diabetes mellitus without complications; E78.5 Hyperlipidemia, unspecified
CPT/HCPCS: 0241U-QW; 36415; 70450-TC; 70551-TC; 71045-TC-FY; 72125-TC; 80053; 80061; 81003; 82010; 82803; 82962; 83036; 83735; 84100; 84443; 84484; 85025; 87086; 90677; 93005; 93010; 97116-GP; 97161-GP; 99285-25; G0008; G0277; Q2036

== ENCOUNTER 2022-07-12 19:08 | Inpatient (IN) | payer OTHER, BC ==
[2022-07-12 19:59] VITALS: BMI 24.6
[2022-07-13] MEDS ORDERED: VANCOMYCIN 1 GM in D5W (PRE-DOCKED) 1,000 MG/250 ML IVPB ONE (00:18)
[2022-07-13] MEDS ORDERED: PIPERACILLIN/TAZOB 3.375 GM 3.375 GM in DEXTROSE 5%-WATER - 50 ML IVPB ONE (00:18)
[2022-07-13] MEDS ORDERED: VANCOMYCIN/WATER FOR INJ (PEG) 1,000 MG/200 ML BAG IVPB ONE (00:58)
[2022-07-13] MEDS ORDERED: PIPERACILLIN/TAZOB 3.375 GM 3.375 GM/50 ML BAG IVPB ONE (00:59)
[2022-07-13 01:20] LABS: BASO % 0.9 % (0-2.0); EOS % 2.1 % (0-4.5); HEMATOCRIT 35.9 % (35.4-49); HEMOGLOBIN 12.3 GM/dL (11.7-16.9); MCH 30.4 pg (25.7-33.7); MCHC 34.2 g/dl (32.0-35.9); MEAN CELL VOLUME 89.1 fl (80-96); MEAN PLT VOLUME 8.9 fl (7.5-11.1); MONO % 8.8 % (3.8-10.2); NEUT % 51.2 % (42.8-82.8); PLATELET COUNT 202 10^3/uL (134-434); RBC 4.03 M/mm3 (4.00-5.60); RDW 13.6 % (11.9-15.9); WHITE BLOOD COUNT 6.1 K/mm3 (4.0-10.0)
[2022-07-13 01:28] LABS: INR 1.23 (0.83-1.09); PROTHROMBIN TIME (PATIENT) 14.2 SEC (9.7-13.0)
[2022-07-13 01:44] LABS: CHLORIDE 106 mmol/L (98-107); SODIUM 141 mmol/L (136-145)
[2022-07-13 01:46] LABS: CALCIUM 9.3 mg/dL (8.5-10.1)
[2022-07-13 01:47] LABS: ALBUMIN 3.8 g/dl (3.4-5.0); ANION GAP 10 MMOL/L (8-16); BLOOD UREA NITROGEN 18.8 mg/dL (7-18); CO2 26 mmol/L (21-32); GLUCOSE,RANDOM 132 mg/dL (74-106)
[2022-07-13 01:50] LABS: CREATININE 0.9 mg/dL (0.55-1.3); SGOT/AST 16 U/L (15-37); SGPT/ALT 25 U/L (13-61)
[2022-07-13 01:52] LABS: BILIRUBIN,TOTAL 0.6 mg/dL (0.2-1)
[2022-07-13 01:53] LABS: ALK PHOS 32 U/L (45-117)
[2022-07-13] MEDS: INSULIN SLIDING SCALE (NOVOLOG) 1 VIAL SQ SCH ×4 (06:52→21:30)
[2022-07-13] MEDS ORDERED: ACETAMINOPHEN 1000 MG/100 ML BAG IVPB PRN ×2 (08:17→12:35)
[2022-07-13] MEDS ORDERED: LISINOPRIL 10 MG TABLET PO SCH (10:00)
[2022-07-13] MEDS ORDERED: ENOXAPARIN NA (PORCINE) 40 MG/0.4 ML DISP.SYRIN SQ SCH (10:00)
[2022-07-13] MEDS ORDERED: CLOPIDOGREL BISULFATE 75 MG TABLET (FP) PO SCH (10:00)
[2022-07-13 10:37] LABS: BASO % 1.1 % (0-2.0); EOS % 3.3 % (0-4.5); HEMATOCRIT 37.5 % (35.4-49); HEMOGLOBIN 12.9 GM/dL (11.7-16.9); LYMPH % 31.4 % (8-40); MCH 30.5 pg (25.7-33.7); MCHC 34.3 g/dl (32.0-35.9); MEAN CELL VOLUME 88.8 fl (80-96); MONO % 9.3 % (3.8-10.2); NEUT % 54.9 % (42.8-82.8); PLATELET COUNT 205 10^3/uL (134-434); RBC 4.22 M/mm3 (4.00-5.60); RDW 13.4 % (11.9-15.9); WHITE BLOOD COUNT 4.9 K/mm3 (4.0-10.0)
[2022-07-13] MEDS ORDERED: FENTANYL CITRATE/PF 50 MCG/ML VIAL ONE (10:47)
[2022-07-13] MEDS ORDERED: MIDAZOLAM HCL 2 MG/2 ML SINGLE DOSE VIAL ONE (10:47)
[2022-07-13] MEDS ORDERED: PROPOFOL 20 ML ONE (10:47)
[2022-07-13 11:05] LABS: ALBUMIN 3.6 g/dl (3.4-5.0); BLOOD UREA NITROGEN 17.3 mg/dL (7-18); MAGNESIUM 2.1 mg/dL (1.8-2.4)
[2022-07-13 11:08] LABS: PHOSPHOROUS 3.4 mg/dL (2.5-4.9)
[2022-07-13 11:10] LABS: BILIRUBIN,TOTAL 0.8 mg/dL (0.2-1); TOT PROT 6.8 g/dl (6.4-8.2)
[2022-07-13] MEDS ORDERED: LIDOCAINE HCL 1%, 10 MG/ML (20ML VIAL) NR ONE ×2 (11:33)
[2022-07-13] MEDS ORDERED: ONDANSETRON 4 MG/2 ML VIAL IVPUSH PRN ×2 (12:06→12:35)
[2022-07-13] MEDS ORDERED: ACETAMINOPHEN 325 MG TABLET (FP) PO PRN ×2 (12:06→12:35)
[2022-07-13] MEDS ORDERED: INSULIN (NOVOLOG) ASPART 100 UNITS/ML 10ML VIAL ONE ×2 (13:06→19:14)
[2022-07-13] MEDS: CEFAZOLIN SODIUM 2 GM in DEXTROSE 5%-WATER 100 ML IVPB SCH ×2 (14:41→18:10)
[2022-07-13] MEDS: ATORVASTATIN CA 20 MG TABLET (FP) PO SCH (21:30)
[2022-07-13] MEDS ORDERED: ATORVASTATIN CA 20 MG TABLET (FP) PO SCH (22:00)
[2022-07-14] MEDS: CEFAZOLIN SODIUM 2 GM in DEXTROSE 5%-WATER 100 ML IVPB SCH ×3 (01:49→17:08)
[2022-07-14] MEDS: INSULIN SLIDING SCALE (NOVOLOG) 1 VIAL SQ SCH ×4 (06:08→21:38)
[2022-07-14] MEDS: LISINOPRIL 10 MG TABLET PO SCH (09:33)
[2022-07-14] MEDS: CLOPIDOGREL BISULFATE 75 MG TABLET (FP) PO SCH (09:33)
[2022-07-14 09:34] LABS: HEMATOCRIT 37.4 % (35.4-49); HEMOGLOBIN 12.8 GM/dL (11.7-16.9); MCH 30.5 pg (25.7-33.7); MCHC 34.4 g/dl (32.0-35.9); MEAN CELL VOLUME 88.7 fl (80-96); MEAN PLT VOLUME 9.2 fl (7.5-11.1); PLATELET COUNT 219 10^3/uL (134-434); RBC 4.21 M/mm3 (4.00-5.60); WHITE BLOOD COUNT 7.2 K/mm3 (4.0-10.0)
[2022-07-14] MEDS: ENOXAPARIN NA (PORCINE) 40 MG/0.4 ML DISP.SYRIN SQ SCH (09:44)
[2022-07-14 10:01] LABS: CALCIUM 9.1 mg/dL (8.5-10.1)
[2022-07-14 10:02] LABS: ALBUMIN 3.4 g/dl (3.4-5.0); BLOOD UREA NITROGEN 19.5 mg/dL (7-18)
[2022-07-14 10:05] LABS: CREATININE 1.1 mg/dL (0.55-1.3)
[2022-07-14 10:07] LABS: BILIRUBIN,TOTAL 0.6 mg/dL (0.2-1); TOT PROT 6.8 g/dl (6.4-8.2)
[2022-07-14] MEDS ORDERED: INSULIN (NOVOLOG) ASPART 100 UNITS/ML 10ML VIAL ONE (10:16)
[2022-07-14] MEDS: MECLIZINE HCL 25 MG TABLET (FP) PO SCH ×2 (10:18→21:38)
[2022-07-14] MEDS ORDERED: INSULIN (LEVEMIR) 100 UNITS/ML UNITS SQ ONE (12:08)
[2022-07-14] MEDS: INSULIN (NOVOLOG) ASPART 100 UNITS/ML 10ML VIAL SQ SCH (16:56)
[2022-07-14] MEDS: INSULIN (LEVEMIR) 100 UNITS/ML UNITS SQ SCH (21:38)
[2022-07-14] MEDS: ATORVASTATIN CA 20 MG TABLET (FP) PO SCH (21:38)
[2022-07-15] MEDS: CEFAZOLIN SODIUM 2 GM in DEXTROSE 5%-WATER 100 ML IVPB SCH ×2 (02:17→09:26)
[2022-07-15] MEDS: INSULIN SLIDING SCALE (NOVOLOG) 1 VIAL SQ SCH ×4 (06:09→23:45)
[2022-07-15] MEDS: INSULIN (NOVOLOG) ASPART 100 UNITS/ML 10ML VIAL SQ SCH ×3 (06:09→17:10)
[2022-07-15] MEDS: ENOXAPARIN NA (PORCINE) 40 MG/0.4 ML DISP.SYRIN SQ SCH (09:26)
[2022-07-15] MEDS: LISINOPRIL 10 MG TABLET PO SCH (09:26)
[2022-07-15] MEDS: CLOPIDOGREL BISULFATE 75 MG TABLET (FP) PO SCH (09:26)
[2022-07-15] MEDS: MECLIZINE HCL 25 MG TABLET (FP) PO SCH ×2 (09:26→22:00)
[2022-07-15] MEDS ORDERED: VANCOMYCIN/WATER FOR INJ (PEG) 1,000 MG/200 ML BAG IVPB SCH (15:30)
[2022-07-15] MEDS ORDERED: INSULIN (NOVOLOG) ASPART 100 UNITS/ML 10ML VIAL ONE (21:20)
[2022-07-15] MEDS: CEFEPIME 1 GM in DEXTROSE 5%-WATER 100 ML IVPB SCH (22:00)
[2022-07-15] MEDS: ATORVASTATIN CA 20 MG TABLET (FP) PO SCH (22:00)
[2022-07-15] MEDS: INSULIN (LEVEMIR) 100 UNITS/ML UNITS SQ SCH (23:45)
[2022-07-16 05:15] VITALS: RESP 18
[2022-07-16] MEDS: INSULIN (NOVOLOG) ASPART 100 UNITS/ML 10ML VIAL SQ SCH ×3 (08:16→17:23)
[2022-07-16] MEDS: INSULIN SLIDING SCALE (NOVOLOG) 1 VIAL SQ SCH ×3 (08:16→17:23)
[2022-07-16] MEDS: LISINOPRIL 10 MG TABLET PO SCH (10:30)
[2022-07-16] MEDS: MECLIZINE HCL 25 MG TABLET (FP) PO SCH (10:30)
[2022-07-16] MEDS: CLOPIDOGREL BISULFATE 75 MG TABLET (FP) PO SCH (10:30)
[2022-07-16] MEDS: CEFEPIME 1 GM in DEXTROSE 5%-WATER 100 ML IVPB SCH (10:31)
[2022-07-16] MEDS: ENOXAPARIN NA (PORCINE) 40 MG/0.4 ML DISP.SYRIN SQ SCH (10:31)
[2022-07-16 16:17] VITALS: BP 138/62; PULSE 60; TEMP 97.4
[2022-07-16] MEDS ORDERED: AMOX TR/POT CLAV 875MG/125MG TABLETS (FP) PO SCH (17:30)
== END 2022-07-16 18:45 | disposition home or self-care (01) | DRG 617 ==
LOC: JER 19:08 → JERBED 07-13 02:01 → J6S 07-13 05:11 → J8W 07-15 17:31
PROVIDERS: ADMIT Internal Medicine; ATTEND Internal Medicine
PROC: 0QBQ0ZX Excision of Right Toe Phalanx, Open Approach, Diagnostic (ICD-10-PCS; 2022-07-13)
PROC: 0Y6P0Z1 Detachment at Right 1st Toe, High, Open Approach (ICD-10-PCS; principal; 2022-07-13 11:00)
DX: E11.621 Type 2 diabetes mellitus with foot ulcer (principal); L97.518 Non-pressure chronic ulcer of other part of right foot with other specified severity; M86.671 Other chronic osteomyelitis, right ankle and foot; E11.69 Type 2 diabetes mellitus with other specified complication; I10 Essential (primary) hypertension; E78.5 Hyperlipidemia, unspecified; B95.2 Enterococcus as the cause of diseases classified elsewhere; B95.61 Methicillin susceptible Staphylococcus aureus infection as the cause of diseases classified elsewhere; B96.4 Proteus (mirabilis) (morganii) as the cause of diseases classified elsewhere; E11.51 Type 2 diabetes mellitus with diabetic peripheral angiopathy without gangrene; E11.65 Type 2 diabetes mellitus with hyperglycemia
CPT/HCPCS: 0241U-QW; 36415; 71046-TC-FY; 73630-TC-RT-FY; 80053; 82962; 83735; 84100; 85025; 85027; 85610; 85651; 85730; 86140; 86850; 86900; 86901; 87040; 87070; 87075; 87186; 87205; 88305-TC; 88311-TC; 93005; 93010; 94760; 97116-GP; 97161-GP; 99285-25

== ENCOUNTER 2023-05-31 14:07 | Emergency (ER) | payer OTHER, BC ==
[2023-05-31 14:26] VITALS: BP 171/73; PULSE 65; RESP 16; TEMP 97.6; BMI 22.9
== END 2023-05-31 15:57 | disposition home or self-care (01) ==
LOC: JERFT 14:07
DX: M19.042 Primary osteoarthritis, left hand (principal); M79.645 Pain in left finger(s); R20.2 Paresthesia of skin; Z20.822 Contact with and (suspected) exposure to COVID-19
CPT/HCPCS: 0241U-QW; 73130-TC-LT-FY; 99284-25

== ENCOUNTER 2023-06-14 19:42 | Emergency (ER) | payer OTHER, BC ==
[2023-06-14 19:49] VITALS: PULSE 63; RESP 18; TEMP 97.6; BMI 22.9
[2023-06-14 21:24] LABS: POTASSIUM 4.8 mmol/L (3.5-5.1)
[2023-06-14 21:25] LABS: CALCIUM 8.5 mg/dL (8.5-10.1)
[2023-06-14 21:26] LABS: BLOOD UREA NITROGEN 17.6 mg/dL (7-18)
[2023-06-14 21:29] LABS: CREATININE 1.2 mg/dL (0.55-1.3)
[2023-06-14 21:33] VITALS: BP 204/77
== END 2023-06-14 21:51 | disposition home or self-care (01) ==
LOC: JER 19:42
DX: I10 Essential (primary) hypertension (principal)
CPT/HCPCS: 36415; 80048; 93005; 93010; 99284-25

== ENCOUNTER 2023-12-31 18:19 | Emergency (ER) | payer OTHER, BC ==
[2023-12-31 19:00] VITALS: RESP 18; TEMP 98; BMI 24.3
[2023-12-31 20:26] LABS: BASO % 1.2 % (0-2.0); HEMATOCRIT 41.3 % (35.4-49); HEMOGLOBIN 14.1 GM/dL (11.7-16.9); LYMPH % 25.4 % (8-40); MCH 31.3 pg (25.7-33.7); MCHC 34.1 g/dl (32.0-35.9); MEAN CELL VOLUME 91.9 fl (80-96); MEAN PLT VOLUME 9.3 fl (7.5-11.1); MONO % 7.9 % (3.8-10.2); NEUT % 62.5 % (42.8-82.8); PH,URINE 8.5 (5.0-8.0); PLATELET COUNT 206 10^3/uL (134-434); RDW 14.1 % (11.9-15.9); URINE APPEARANCE CLEAR; URINE BILIRUBIN NEGATIVE (NEGATIVE); URINE COLOR YELLOW; URINE GLUCOSE (UA) 2+ (NEGATIVE); URINE KETONE NEGATIVE (NEGATIVE); URINE LEUK ESTERASE NEGATIVE (NEGATIVE); URINE NITRITE NEGATIVE (NEGATIVE); URINE PROTEIN NEGATIVE (NEGATIVE); URINE UROBILINOGEN 0.2 mg/dL (0.2-1.0); WHITE BLOOD COUNT 5.7 K/mm3 (4.0-10.0)
[2023-12-31 20:36] LABS: INR 1.04 (0.83-1.09); PROTHROMBIN TIME (PATIENT) 11.9 SEC (9.7-13.0)
[2023-12-31 20:46] LABS: POTASSIUM 4.9 mmol/L (3.5-5.1)
[2023-12-31 20:48] LABS: BLOOD UREA NITROGEN 20.7 mg/dL (7-18); CALCIUM 9.5 mg/dL (8.5-10.1)
[2023-12-31 20:49] LABS: ALBUMIN 4.3 g/dl (3.4-5.0)
[2023-12-31 20:51] LABS: CREATININE 1.4 mg/dL (0.55-1.3)
[2023-12-31 20:53] LABS: BILIRUBIN,TOTAL 0.6 mg/dL (0.2-1); TOT PROT 7.7 g/dl (6.4-8.2)
[2023-12-31] MEDS: SODIUM CHLORIDE 0.9% 500 ML INFUS.BAG IV ONE (22:06)
[2023-12-31 23:17] VITALS: BP 151/74; PULSE 66
[2023-12-31 23:48] LABS: POTASSIUM 5.3 mmol/L (3.5-5.1)
[2023-12-31 23:50] LABS: BLOOD UREA NITROGEN 19.7 mg/dL (7-18)
[2023-12-31 23:53] LABS: CREATININE 1.3 mg/dL (0.55-1.3)
== END 2024-01-01 01:01 | disposition home or self-care (01) ==
LOC: JER 18:19
DX: T67.5XXA Heat exhaustion, unspecified, initial encounter (principal); E86.0 Dehydration; R41.82 Altered mental status, unspecified
CPT/HCPCS: 36415; 70450-TC; 71045-TC-FY; 80048; 80053; 81003; 82550; 82553; 82962; 84484; 85025; 85610; 85730; 86850; 86900; 86901; 93005; 93010; 99285-25

== ENCOUNTER 2024-04-17 16:17 | Inpatient (IN) | payer OTHER, BC ==
[2024-04-17] MEDS: LACTATED RINGERS SOLUTION 1,000 ML/1,000 ML INFUS.BAG IV SCH (18:08)
[2024-04-17] MEDS ORDERED: ACETAMINOPHEN 500 MG TABLET (FP) ONE (18:09)
[2024-04-17] MEDS: ACETAMINOPHEN 500 MG TABLET (FP) PO ONE (18:15)
[2024-04-17 18:20] LABS: BASO % 1.1 % (0-2.0); EOS % 2.7 % (0-4.5); HEMATOCRIT 39.2 % (35.4-49); HEMOGLOBIN 13.3 GM/dL (11.7-16.9); LYMPH % 24.3 % (8-40); MCH 31.4 pg (25.7-33.7); MEAN CELL VOLUME 92.1 fl (80-96); MEAN PLT VOLUME 8.7 fl (7.5-11.1); MONO % 7.1 % (3.8-10.2); NEUT % 64.8 % (42.8-82.8); PLATELET COUNT 249 10^3/uL (134-434); RBC 4.25 M/mm3 (4.00-5.60); RDW 13.6 % (11.9-15.9); WHITE BLOOD COUNT 5.8 K/mm3 (4.0-10.0)
[2024-04-17 18:34] LABS: INR 1.06 (0.83-1.09); PROTHROMBIN TIME (PATIENT) 12.2 SEC (9.7-13.0)
[2024-04-17 18:37] LABS: ACTIVATED PTT 30.4 SECONDS (25.2-36.5); POTASSIUM 3.9 mmol/L (3.5-5.1)
[2024-04-17 18:39] LABS: ALBUMIN 4.1 g/dl (3.4-5.0); BLOOD UREA NITROGEN 19.9 mg/dL (7-18); CALCIUM 9.4 mg/dL (8.5-10.1); MAGNESIUM 2.3 mg/dL (1.8-2.4)
[2024-04-17 18:42] LABS: CREATININE 1.2 mg/dL (0.55-1.3)
[2024-04-17 18:43] LABS: PHOSPHOROUS 3.2 mg/dL (2.5-4.9)
[2024-04-17 18:44] LABS: BILIRUBIN,TOTAL 0.6 mg/dL (0.2-1); TOT PROT 7.7 g/dl (6.4-8.2)
[2024-04-17] MEDS ORDERED: PIPERACILLIN/TAZOB 4.5 GM 4.5 GM/100 ML BAG IVPB ONE (20:28)
[2024-04-17] MEDS: PIPERACILLIN/TAZOB 4.5 GM 4.5 GM in DEXTROSE 5%-WATER 100 ML IVPB ONE (20:31)
[2024-04-17] MEDS: VANCOMYCIN HCL 1,500 MG in DEXTROSE 5%-WATER - 500 ML IVPB ONE (20:43)
[2024-04-17] MEDS: VANCOMYCIN PREMIX 1.5 GM 1,500 MG/300 ML BAG IVPB ONE (23:38)
[2024-04-18] MEDS ORDERED: ACETAMINOPHEN 1000 MG/100 ML BAG IVPB PRN (01:46)
[2024-04-18 02:06] VITALS: BMI 25.5
[2024-04-18] MEDS ORDERED: PIPERACILLIN/TAZOB 4.5 GM 4.5 GM in DEXTROSE 5%-WATER 100 ML IVPB SCH (03:00)
[2024-04-18] MEDS: PIPERACILLIN/TAZOB 4.5 GM 4.5 GM in DEXTROSE 5%-WATER 100 ML IVPB SCH (03:31)
[2024-04-18] MEDS: INSULIN ASPART SLIDING SCALE (NOVOLOG) 1 VIAL SQ SCH (06:58)
[2024-04-18] MEDS: LISINOPRIL 10 MG TABLET PO SCH (09:35)
[2024-04-18] MEDS: VANCOMYCIN/WATER FOR INJ (PEG) 1,000 MG/200 ML BAG IVPB SCH (10:53)
[2024-04-18 11:19] LABS: BASO % 0.6 % (0-2.0); EOS % 4.3 % (0-4.5); HEMATOCRIT 35.9 % (35.4-49); HEMOGLOBIN 12.4 GM/dL (11.7-16.9); LYMPH % 17.3 % (8-40); MCH 31.7 pg (25.7-33.7); MCHC 34.4 g/dl (32.0-35.9); MEAN CELL VOLUME 92.1 fl (80-96); MONO % 11.4 % (3.8-10.2); NEUT % 66.4 % (42.8-82.8); PLATELET COUNT 226 10^3/uL (134-434); RDW 13.2 % (11.9-15.9); WHITE BLOOD COUNT 6.4 K/mm3 (4.0-10.0)
[2024-04-18 11:58] LABS: BLOOD UREA NITROGEN 20.6 mg/dL (7-18); CREATININE 1.2 mg/dL (0.55-1.3); POTASSIUM 4.1 mmol/L (3.5-5.1)
[2024-04-18] MEDS: CEFAZOLIN 1 GM in DEXTROSE 5%-WATER - 50 ML IVPB SCH (17:06)
[2024-04-18] MEDS: ATORVASTATIN CA 20 MG TABLET (FP) PO SCH (21:22)
[2024-04-18] MEDS: INSULIN (LEVEMIR) 100 UNITS/ML UNITS SQ SCH (21:22)
[2024-04-19] MEDS: INSULIN ASPART SLIDING SCALE (NOVOLOG) 1 VIAL SQ SCH (06:15)
[2024-04-20] MEDS: PIPERACILLIN/TAZOB 4.5 GM 4.5 GM in DEXTROSE 5%-WATER 100 ML IVPB SCH (07:53)
[2024-04-20] MEDS: VANCOMYCIN 1,000 MG in DEXTROSE 5%-WATER - 250 ML IVPB SCH (07:54)
[2024-04-21 10:56] LABS: HEMATOCRIT 32.3 % (35.4-49); HEMOGLOBIN 11.5 GM/dL (11.7-16.9); MCH 32.1 pg (25.7-33.7); MCHC 35.5 g/dl (32.0-35.9); MEAN CELL VOLUME 90.2 fl (80-96); MEAN PLT VOLUME 9.1 fl (7.5-11.1); PLATELET COUNT 203 10^3/uL (134-434); RBC 3.58 M/mm3 (4.00-5.60); RDW 12.8 % (11.9-15.9); WHITE BLOOD COUNT 6.5 K/mm3 (4.0-10.0)
[2024-04-21 11:09] LABS: CALCIUM 8.4 mg/dL (8.5-10.1)
[2024-04-21 11:10] LABS: BLOOD UREA NITROGEN 23.7 mg/dL (7-18)
[2024-04-21 11:14] LABS: BILIRUBIN,TOTAL 0.3 mg/dL (0.2-1); TOT PROT 5.8 g/dl (6.4-8.2)
[2024-04-21] MEDS: ASPIRIN 81 MG CHEWABLE TABLETS PO SCH (13:41)
[2024-04-21] MEDS: CLOPIDOGREL BISULFATE 75 MG TABLET (FP) PO SCH (13:42)
[2024-04-22] MEDS ORDERED: INSULIN ASPART SLIDING SCALE (NOVOLOG) 1 VIAL SQ ONE (12:09)
[2024-04-23] MEDS ORDERED: LIDOCAINE HCL 1%, 10 MG/ML (20ML VIAL) ONE (07:14)
[2024-04-23] MEDS ORDERED: HEPARIN NA (PORCINE) 5,000 UNITS/ML 1ML VIAL ONE ×2 (07:14→08:40)
[2024-04-23] MEDS ORDERED: LIDOCAINE HCL/PF 2% SDV 5ML VIAL ONE (07:15)
[2024-04-23] MEDS ORDERED: ONDANSETRON 4 MG/2 ML VIAL ONE (07:15)
[2024-04-23] MEDS ORDERED: PROPOFOL 40 ML ONE (07:16)
[2024-04-23] MEDS ORDERED: MIDAZOLAM HCL 2 MG/2 ML SINGLE DOSE VIAL ONE (07:17)
[2024-04-23] MEDS ORDERED: ONDANSETRON 4 MG/2 ML VIAL IVPUSH PRN ×2 (07:41→10:21)
[2024-04-23] MEDS: LIDOCAINE HCL 1%, 10 MG/ML (50 mL VIAL) INF ONE ×2 (08:23)
[2024-04-23] MEDS: LACTATED RINGERS SOLUTION 1,000 ML IV SCH ×2 (10:08→10:58)
[2024-04-23] MEDS ORDERED: ceFAZolin SODIUM 1 GM VIAL ONE (10:09)
[2024-04-23] MEDS: hydrALAZINE HCL 20 MG/ML VIAL IVPUSH ONE (11:14)
[2024-04-23] MEDS: LACTATED RINGERS SOLUTION 1,000 ML/1,000 ML INFUS.BAG IV SCH (12:06)
[2024-04-23] MEDS: INSULIN ASPART SLIDING SCALE (NOVOLOG) 1 VIAL SQ SCH (12:10)
[2024-04-23 16:02] VITALS: RESP 18
[2024-04-23] MEDS: CEFAZOLIN 1 GM in DEXTROSE 5%-WATER - 50 ML IVPB SCH (19:05)
[2024-04-23] MEDS: INSULIN (LEVEMIR) 100 UNITS/ML UNITS SQ SCH (22:41)
[2024-04-23] MEDS: ATORVASTATIN CA 20 MG TABLET (FP) PO SCH (22:42)
[2024-04-24 09:46] VITALS: BP 105/66; PULSE 88; TEMP 99.7
[2024-04-24 10:10] LABS: POTASSIUM 3.7 mmol/L (3.5-5.1)
[2024-04-24 10:13] LABS: CALCIUM 8.8 mg/dL (8.5-10.1)
[2024-04-24 10:14] LABS: BLOOD UREA NITROGEN 19.2 mg/dL (7-18)
[2024-04-24] MEDS: ASPIRIN 81 MG CHEWABLE TABLETS PO SCH (11:53)
[2024-04-24] MEDS: LISINOPRIL 10 MG TABLET PO SCH (11:53)
[2024-04-24] MEDS: CLOPIDOGREL BISULFATE 75 MG TABLET (FP) PO SCH (11:53)
[2024-04-25] MEDS ORDERED: COLLAGENASE CLOSTRIDIUM HIST. 30 GRAMS TUBE TP SCH (10:00)
== END 2024-04-24 13:15 | disposition home or self-care (01) | DRG 271 ==
LOC: JER 16:17 → JERBED 17:10 → J8W 04-18 00:56
PROVIDERS: ADMIT Internal Medicine; ATTEND Family Medicine
PROC: 047L3DZ Dilation of Left Femoral Artery with Intraluminal Device, Percutaneous Approach (ICD-10-PCS; 2024-04-23)
PROC: 04CL3ZZ Extirpation of Matter from Left Femoral Artery, Percutaneous Approach (ICD-10-PCS; principal; 2024-04-23 08:00)
DX: E11.51 Type 2 diabetes mellitus with diabetic peripheral angiopathy without gangrene (principal); L03.116 Cellulitis of left lower limb; L97.528 Non-pressure chronic ulcer of other part of left foot with other specified severity; E11.40 Type 2 diabetes mellitus with diabetic neuropathy, unspecified; I10 Essential (primary) hypertension; E78.5 Hyperlipidemia, unspecified; E11.621 Type 2 diabetes mellitus with foot ulcer; F10.20 Alcohol dependence, uncomplicated; L08.9 Local infection of the skin and subcutaneous tissue, unspecified
CPT/HCPCS: 11042; 36415; 36569; 73630-TC-LT; 73630-TC-RT-FY; 73718-TC-LT; 76000-TC-FY; 80048; 80053; 80061; 82962; 83036; 83735; 84100; 85025; 85027; 85610; 85651; 85730; 86140; 86850; 86900; 86901; 87040; 87070; 87081; 87186; 87205; 93005; 93010; 93922; 93925-TC; 94760; 97116-GP; 99285-25; C1760; C1876; J1644

== ENCOUNTER 2024-04-24 17:41 | Observation (INO) | payer OTHER, BC ==
[2024-04-24 20:06] LABS: BASO % 0.7 % (0-2.0); EOS % 1.6 % (0-4.5); HEMATOCRIT 34.4 % (35.4-49); HEMOGLOBIN 11.8 GM/dL (11.7-16.9); LYMPH % 13.1 % (8-40); MCH 31.5 pg (25.7-33.7); MCHC 34.2 g/dl (32.0-35.9); MEAN PLT VOLUME 8.7 fl (7.5-11.1); MONO % 14.4 % (3.8-10.2); NEUT % 70.2 % (42.8-82.8); PLATELET COUNT 209 10^3/uL (134-434); RBC 3.74 M/mm3 (4.00-5.60); RDW 13.1 % (11.9-15.9); WHITE BLOOD COUNT 6.7 K/mm3 (4.0-10.0)
[2024-04-24 20:07] LABS: URINE APPEARANCE CLEAR; URINE BILIRUBIN NEGATIVE (NEGATIVE); URINE COLOR YELLOW; URINE GLUCOSE (UA) 3+ (NEGATIVE); URINE KETONE NEGATIVE (NEGATIVE); URINE LEUK ESTERASE NEGATIVE (NEGATIVE); URINE NITRITE NEGATIVE (NEGATIVE); URINE PROTEIN NEGATIVE (NEGATIVE); URINE UROBILINOGEN 0.2 mg/dL (0.2-1.0)
[2024-04-24 20:15] LABS: INR 1.24 (0.83-1.09); PROTHROMBIN TIME (PATIENT) 14.2 SEC (9.7-13.0)
[2024-04-24 20:26] LABS: POTASSIUM 4.4 mmol/L (3.5-5.1)
[2024-04-24 20:30] LABS: ALBUMIN 3.4 g/dl (3.4-5.0); BLOOD UREA NITROGEN 20.8 mg/dL (7-18); CALCIUM 8.7 mg/dL (8.5-10.1)
[2024-04-24 20:33] LABS: CREATININE 1.2 mg/dL (0.55-1.3)
[2024-04-24 20:35] LABS: BILIRUBIN,TOTAL 0.6 mg/dL (0.2-1); TOT PROT 6.6 g/dl (6.4-8.2)
[2024-04-24] MEDS ORDERED: ceFAZolin SODIUM 1 GM VIAL ONE (21:15)
[2024-04-24] MEDS: CEFAZOLIN 1 GM in DEXTROSE 5%-WATER - 50 ML IVPB ONE (21:20)
[2024-04-24] MEDS ORDERED: DOCUSATE SODIUM 100 MG CAPSULE (FP) PO PRN (22:28)
[2024-04-24] MEDS ORDERED: ACETAMINOPHEN 325 MG TABLET (FP) PO PRN (22:28)
[2024-04-25 05:11] LABS: METHADONE, UR NEGATIVE (NEGATIVE); OPIATES, URI NEGATIVE (NEGATIVE); URINE BARBITURATES NEGATIVE (NEGATIVE); URINE BENZODIAZEPINES NEGATIVE (NEGATIVE)
[2024-04-25 05:13] LABS: PHENCYCLIDINE,URINE NEGATIVE (NEGATIVE)
[2024-04-25] MEDS ORDERED: CEFAZOLIN SODIUM 2 GM VIAL ONE ×3 (05:18→19:38)
[2024-04-25] MEDS: CEFAZOLIN SODIUM 2 GM in DEXTROSE 5%-WATER 100 ML IVPB SCH (05:25)
[2024-04-25 05:49] LABS: COCAINE, UR NEGATIVE (NEGATIVE); URINE AMPHETAMINES NEGATIVE (NEGATIVE)
[2024-04-25 06:32] VITALS: RESP 18
[2024-04-25] MEDS: INSULIN ASPART SLIDING SCALE (NOVOLOG) 1 VIAL SQ SCH (07:48)
[2024-04-25] MEDS ORDERED: INSULIN ASPART SLIDING SCALE (NOVOLOG) 1 VIAL SQ ONE ×2 (07:58→17:47)
[2024-04-25] MEDS ORDERED: CLOPIDOGREL BISULFATE 75 MG TABLET (FP) ONE (10:43)
[2024-04-25] MEDS ORDERED: LISINOPRIL 10 MG TABLET ONE (10:43)
[2024-04-25] MEDS ORDERED: ASPIRIN 81 MG CHEWABLE TABLETS ONE (10:43)
[2024-04-25] MEDS: CLOPIDOGREL BISULFATE 75 MG TABLET (FP) PO SCH (10:49)
[2024-04-25] MEDS: LISINOPRIL 10 MG TABLET PO SCH (10:49)
[2024-04-25] MEDS: ASPIRIN 81 MG CHEWABLE TABLETS PO SCH (10:49)
[2024-04-25] MEDS ORDERED: ATORVASTATIN CA 20 MG TABLET (FP) ONE (22:16)
[2024-04-25] MEDS ORDERED: INSULIN (LEVEMIR) 100 UNITS/ML UNITS SQ ONE (22:17)
[2024-04-25] MEDS: INSULIN (LEVEMIR) 100 UNITS/ML UNITS SQ SCH (22:28)
[2024-04-25] MEDS: ATORVASTATIN CA 20 MG TABLET (FP) PO SCH (22:28)
[2024-04-26 08:50] VITALS: BMI 26.1
[2024-04-26 18:42] VITALS: BP 115/67; PULSE 84; TEMP 98.2
== END 2024-04-26 18:47 ==
LOC: JER 17:41 → JERBED 21:03 → INTOOBSV 21:03 → UNDOADMOB 21:03 → JERBED 22:28 → J6S 04-26 00:17 → JERBED 04-26 00:17 → J6S 04-26 00:17
PROVIDERS: ADMIT Internal Medicine; ATTEND Family Medicine
PROC: 3E03329 Introduction of Other Anti-infective into Peripheral Vein, Percutaneous Approach (ICD-10-PCS; principal; 2024-04-24)
PROC: 3E013VG Introduction of Insulin into Subcutaneous Tissue, Percutaneous Approach (ICD-10-PCS; 2024-04-24)
DX: Z00.8 Encounter for other general examination (principal); R41.82 Altered mental status, unspecified; E11.628 Type 2 diabetes mellitus with other skin complications; L08.9 Local infection of the skin and subcutaneous tissue, unspecified; I10 Essential (primary) hypertension; I73.9 Peripheral vascular disease, unspecified; Z86.31 Personal history of diabetic foot ulcer; L03.90 Cellulitis, unspecified; E11.621 Type 2 diabetes mellitus with foot ulcer; E78.00 Pure hypercholesterolemia, unspecified; Z89.431 Acquired absence of right foot
CPT/HCPCS: 36415; 70450-TC; 71045-TC-FY; 80053; 80307; 81003; 82962; 83605; 85025; 85610; 86850; 86900; 86901; 87086; 93005; 93010; 96365; 96366; 96372; 99285-25; G0378

== ENCOUNTER 2024-11-07 12:02 | Inpatient (IN) | payer OTHER ==
[2024-11-07 13:28] VITALS: BMI 24.3
[2024-11-07 14:43] LABS: ABSOLUTE IMMATURE GRANULOCYTES 0.07 x10^3/uL (0.0-0.031); BASOPHILS # 0.06 x10^3/uL (0.01-0.08); EOSINOPHIL % 0.2 % (0.8-7.0); EOSINOPHILS # 0.03 x10^3/uL (0.04-0.54); HEMATOCRIT 38.5 % (40.1-51.0); HEMOGLOBIN 12.9 g/dL (13.7-17.5); MCHC 33.5 g/dl (32.3-36.5); MEAN CELL VOLUME 89.1 fl (79.0-92.2); MEAN PLT VOLUME 11.3 fl (9.4-12.4); MONOCYTE # 1.12 x10^3/uL (0.30-0.82); MONOCYTE % 9.2 % (5.3-12.2); PLATELET COUNT 282 x10^3/uL (163-337); RDW 12.8 % (12.6-16.6)
[2024-11-07 14:50] LABS: INR 1.34 (0.83-1.09); PROTHROMBIN TIME (PATIENT) 14.7 SEC (9.7-13.0)
[2024-11-07] MEDS: ACETAMINOPHEN 1000 MG/100 ML BAG IVPB ONE (15:00)
[2024-11-07 15:03] LABS: CALCIUM 9.2 mg/dL (8.5-10.1)
[2024-11-07 15:04] LABS: BLOOD UREA NITROGEN 21.5 mg/dL (7-18); MAGNESIUM 2.4 mg/dL (1.8-2.4)
[2024-11-07 15:08] LABS: CREATININE 1.1 mg/dL (0.55-1.3)
[2024-11-07 15:09] LABS: BILIRUBIN,TOTAL 1.2 mg/dL (0.2-1); TOT PROT 7.4 g/dl (6.4-8.2)
[2024-11-07 15:49] LABS: ERYTHROCYTE SEDIMENTATION RATE 53 mm/hr (0-20)
[2024-11-07] MEDS ORDERED: PIPERACILLIN/TAZOB 3.375 GM 3.375 GM/50 ML BAG IVPB ONE (15:51)
[2024-11-07] MEDS: PIPERACILLIN/TAZOB 3.375 GM 3.375 GM in DEXTROSE 5%-WATER - 50 ML IVPB SCH (15:57)
[2024-11-07] MEDS: GABAPENTIN 100 MG CAPSULE PO SCH (21:59)
[2024-11-07] MEDS ORDERED: PATIENT'S OWN MEDICATION (NON-FORMULARY) (Insulin Glargine,Hum.Rec.Anlog [Basaglar Kwikpen SQ SCH (22:00)
[2024-11-07] MEDS: ATORVASTATIN CA 20 MG TABLET (FP) PO SCH (22:00)
[2024-11-07] MEDS ORDERED: INSULIN GLARGINE (LANTUS) 100 UNITS/ML UNITS SQ SCH (22:00)
[2024-11-07 22:29] LABS: POTASSIUM 4.1 mmol/L (3.5-5.1)
[2024-11-07] MEDS: INSULIN ASPART SLIDING SCALE (NOVOLOG) 1 VIAL SQ SCH (23:10)
[2024-11-07] MEDS: COLLAGENASE CLOSTRIDIUM HIST. 30 GRAMS TUBE TP SCH (23:12)
[2024-11-08 08:35] LABS: ABSOLUTE IMMATURE GRANULOCYTES 0.03 x10^3/uL (0.0-0.031); BASOPHILS # 0.04 x10^3/uL (0.01-0.08); EOSINOPHIL % 0.7 % (0.8-7.0); EOSINOPHILS # 0.07 x10^3/uL (0.04-0.54); HEMOGLOBIN 12.2 g/dL (13.7-17.5); MEAN CELL VOLUME 89.6 fl (79.0-92.2); MEAN PLT VOLUME 11.2 fl (9.4-12.4); MONOCYTE # 1.05 x10^3/uL (0.30-0.82); MONOCYTE % 11.1 % (5.3-12.2); PLATELET COUNT 253 x10^3/uL (163-337); RDW 12.6 % (12.6-16.6)
[2024-11-08 08:45] LABS: POTASSIUM 4.1 mmol/L (3.5-5.1)
[2024-11-08 08:51] LABS: ALBUMIN 2.7 g/dl (3.4-5.0); BLOOD UREA NITROGEN 26.8 mg/dL (7-18); CALCIUM 8.9 mg/dL (8.5-10.1); MAGNESIUM 2.4 mg/dL (1.8-2.4)
[2024-11-08 08:54] LABS: CREATININE 1.1 mg/dL (0.55-1.3); PHOSPHOROUS 4.1 mg/dL (2.5-4.9)
[2024-11-08 08:55] LABS: BILIRUBIN,TOTAL 0.6 mg/dL (0.2-1); TOT PROT 6.5 g/dl (6.4-8.2)
[2024-11-08] MEDS: LISINOPRIL 10 MG TABLET PO SCH (10:17)
[2024-11-08] MEDS: CLOPIDOGREL BISULFATE 75 MG TABLET (FP) PO SCH (10:17)
[2024-11-08] MEDS: ACETAMINOPHEN 1000 MG/100 ML BAG IVPB PRN (17:04)
[2024-11-08] MEDS ORDERED: PATIENT'S OWN MEDICATION (NON-FORMULARY) (Insulin Glargine,Hum.Rec.Anlog [Basaglar Kwikpen SQ SCH (22:00)
[2024-11-08] MEDS: INSULIN GLARGINE (LANTUS) 100 UNITS/ML UNITS SQ SCH (22:13)
[2024-11-08] MEDS: ACETAMINOPHEN 1000 MG/100 ML BAG IVPB ONE (22:15)
[2024-11-08] MEDS ORDERED: MELATONIN 5 MG TABLETS PO PRN (23:30)
[2024-11-09 08:39] LABS: ABSOLUTE IMMATURE GRANULOCYTES 0.03 x10^3/uL (0.0-0.031); BASOPHILS # 0.06 x10^3/uL (0.01-0.08); EOSINOPHIL % 1.2 % (0.8-7.0); EOSINOPHILS # 0.12 x10^3/uL (0.04-0.54); HEMATOCRIT 38.2 % (40.1-51.0); HEMOGLOBIN 12.4 g/dL (13.7-17.5); MCHC 32.5 g/dl (32.3-36.5); MEAN CELL VOLUME 90.1 fl (79.0-92.2); MEAN PLT VOLUME 10.9 fl (9.4-12.4); MONOCYTE # 1.01 x10^3/uL (0.30-0.82); MONOCYTE % 10.2 % (5.3-12.2); PLATELET COUNT 318 x10^3/uL (163-337); RDW 12.7 % (12.6-16.6)
[2024-11-09 09:10] LABS: POTASSIUM 4.2 mmol/L (3.5-5.1)
[2024-11-09 09:18] LABS: ALBUMIN 2.8 g/dl (3.4-5.0); BLOOD UREA NITROGEN 30.2 mg/dL (7-18)
[2024-11-09 09:19] LABS: BILIRUBIN,TOTAL 0.5 mg/dL (0.2-1)
[2024-11-09 09:20] LABS: TOT PROT 6.8 g/dl (6.4-8.2)
[2024-11-09 09:21] LABS: CREATININE 1.2 mg/dL (0.55-1.3)
[2024-11-09 09:23] LABS: CALCIUM 9.2 mg/dL (8.5-10.1); MAGNESIUM 2.5 mg/dL (1.8-2.4)
[2024-11-09] MEDS: FARXIGA 10 MG PO SCH (11:38)
[2024-11-09] MEDS: MEROPENEM 1 GM in DEXTROSE 5%-WATER 100 ML IVPB SCH (17:26)
[2024-11-10 10:34] LABS: ABSOLUTE IMMATURE GRANULOCYTES 0.03 x10^3/uL (0.0-0.031); BASOPHILS # 0.05 x10^3/uL (0.01-0.08); EOSINOPHIL % 0.8 % (0.8-7.0); EOSINOPHILS # 0.07 x10^3/uL (0.04-0.54); HEMOGLOBIN 11.4 g/dL (13.7-17.5); MCHC 33.5 g/dl (32.3-36.5); MEAN CELL VOLUME 89.5 fl (79.0-92.2); MEAN PLT VOLUME 10.1 fl (9.4-12.4); MONOCYTE # 0.99 x10^3/uL (0.30-0.82); MONOCYTE % 10.8 % (5.3-12.2); PLATELET COUNT 316 x10^3/uL (163-337); RDW 12.6 % (12.6-16.6)
[2024-11-10 11:01] LABS: POTASSIUM 3.8 mmol/L (3.5-5.1)
[2024-11-10 11:17] LABS: BLOOD UREA NITROGEN 23.1 mg/dL (7-18); CALCIUM 8.9 mg/dL (8.5-10.1)
[2024-11-10 11:18] LABS: ALBUMIN 2.6 g/dl (3.4-5.0); MAGNESIUM 2.2 mg/dL (1.8-2.4)
[2024-11-10 11:22] LABS: BILIRUBIN,TOTAL 0.4 mg/dL (0.2-1); TOT PROT 6.3 g/dl (6.4-8.2)
[2024-11-10] MEDS: ASPIRIN 81 MG CHEWABLE TABLETS PO SCH (14:09)
[2024-11-11 08:34] LABS: ABSOLUTE IMMATURE GRANULOCYTES 0.02 x10^3/uL (0.0-0.031); BASOPHILS # 0.04 x10^3/uL (0.01-0.08); EOSINOPHIL % 1.1 % (0.8-7.0); EOSINOPHILS # 0.11 x10^3/uL (0.04-0.54); MCHC 33.3 g/dl (32.3-36.5); MEAN CELL VOLUME 88.5 fl (79.0-92.2); MEAN PLT VOLUME 9.8 fl (9.4-12.4); MONOCYTE % 10.3 % (5.3-12.2); PLATELET COUNT 330 x10^3/uL (163-337); RDW 12.5 % (12.6-16.6)
[2024-11-11 09:12] LABS: BLOOD UREA NITROGEN 19.7 mg/dL (7-18); TOT PROT 6.4 g/dl (6.4-8.2)
[2024-11-11 09:13] LABS: ALBUMIN 2.6 g/dl (3.4-5.0); CALCIUM 8.9 mg/dL (8.5-10.1); MAGNESIUM 2.4 mg/dL (1.8-2.4)
[2024-11-11 09:15] LABS: CREATININE 0.8 mg/dL (0.55-1.3)
[2024-11-11 09:27] LABS: BILIRUBIN,TOTAL 0.4 mg/dL (0.2-1)
[2024-11-12] MEDS ORDERED: oxyCODONE HCL 5 MG TABLET PO PRN (09:16)
[2024-11-12 11:19] LABS: ABSOLUTE IMMATURE GRANULOCYTES 0.02 x10^3/uL (0.0-0.031); BASOPHILS # 0.05 x10^3/uL (0.01-0.08); EOSINOPHIL % 0.9 % (0.8-7.0); EOSINOPHILS # 0.07 x10^3/uL (0.04-0.54); HEMOGLOBIN 11.6 g/dL (13.7-17.5); MCHC 33.1 g/dl (32.3-36.5); MEAN CELL VOLUME 88.2 fl (79.0-92.2); MEAN PLT VOLUME 9.6 fl (9.4-12.4); MONOCYTE # 0.86 x10^3/uL (0.30-0.82); MONOCYTE % 10.7 % (5.3-12.2); PLATELET COUNT 312 x10^3/uL (163-337); RDW 12.4 % (12.6-16.6)
[2024-11-12 11:36] LABS: POTASSIUM 3.9 mmol/L (3.5-5.1)
[2024-11-12 11:38] LABS: ALBUMIN 2.4 g/dl (3.4-5.0); BLOOD UREA NITROGEN 21.1 mg/dL (7-18); MAGNESIUM 2.1 mg/dL (1.8-2.4)
[2024-11-12 11:42] LABS: CREATININE 0.8 mg/dL (0.55-1.3)
[2024-11-12 11:43] LABS: BILIRUBIN,TOTAL 0.4 mg/dL (0.2-1); TOT PROT 6.1 g/dl (6.4-8.2)
[2024-11-12] MEDS ORDERED: HEPARIN NA (PORCINE) 5,000 UNITS/ML 1ML VIAL ONE ×2 (15:00→16:41)
[2024-11-12] MEDS ORDERED: LIDOCAINE HCL 1%, 10 MG/ML (20ML VIAL) ONE (15:00)
[2024-11-12] MEDS ORDERED: ONDANSETRON 4 MG/2 ML VIAL ONE (15:08)
[2024-11-12] MEDS ORDERED: ceFAZolin SODIUM 1 GM VIAL ONE (15:08)
[2024-11-12] MEDS ORDERED: DEXAMETHASONE SOD PHOSPHATE 4 MG/1 ML VIAL ONE (15:08)
[2024-11-12] MEDS ORDERED: DEXMEDETOMIDINE HCL 200 MCG/2 ML IVPB ONE (15:19)
[2024-11-12] MEDS ORDERED: ACETAMINOPHEN INJECTION 100 ML ONE (15:19)
[2024-11-12] MEDS ORDERED: MIDAZOLAM HCL 2 MG/2 ML SINGLE DOSE VIAL ONE (15:21)
[2024-11-12] MEDS ORDERED: SODIUM CHLORIDE 0.9% P/F 10 ML VIAL IJ ONE (15:22)
[2024-11-12] MEDS ORDERED: PROPOFOL 20 ML ONE ×2 (16:16→17:28)
[2024-11-12] MEDS: cefOXitin SODIUM 2 GM VIAL (RESTRICTED TO ID) IVPB ONE (16:20)
[2024-11-12] MEDS: LIDOCAINE HCL 1%, 10 MG/ML (20ML VIAL) NR ONE (16:25)
[2024-11-12] MEDS ORDERED: PHENYLEPHRINE HCL 10 MG/1 ML SINGLE DOSE VIAL ONE (16:41)
[2024-11-12] MEDS ORDERED: LACTATED RINGERS SOLUTION 1,000 ML IV SCH (17:00)
[2024-11-12] MEDS ORDERED: MELATONIN 5 MG TABLETS PO PRN (18:54)
[2024-11-12] MEDS: LACTATED RINGERS SOLUTION 1,000 ML IV SCH (18:59)
[2024-11-12] MEDS: INSULIN GLARGINE (LANTUS) 100 UNITS/ML UNITS SQ SCH (22:19)
[2024-11-12] MEDS: GABAPENTIN 100 MG CAPSULE PO SCH (22:19)
[2024-11-12] MEDS: ATORVASTATIN CA 20 MG TABLET (FP) PO SCH (22:20)
[2024-11-12] MEDS: INSULIN ASPART SLIDING SCALE (NOVOLOG) 1 VIAL SQ SCH (22:20)
[2024-11-13] MEDS: MEROPENEM 1 GM in DEXTROSE 5%-WATER 100 ML IVPB SCH (01:57)
[2024-11-13 06:12] VITALS: RESP 18
[2024-11-13 08:11] LABS: ABSOLUTE IMMATURE GRANULOCYTES 0.05 x10^3/uL (0.0-0.031); BASOPHILS # 0.02 x10^3/uL (0.01-0.08); HEMOGLOBIN 11.1 g/dL (13.7-17.5); MCHC 33.6 g/dl (32.3-36.5); MEAN CELL VOLUME 89.2 fl (79.0-92.2); MEAN PLT VOLUME 10.3 fl (9.4-12.4); MONOCYTE # 0.52 x10^3/uL (0.30-0.82); MONOCYTE % 5.2 % (5.3-12.2); PLATELET COUNT 324 x10^3/uL (163-337); RDW 12.3 % (12.6-16.6)
[2024-11-13 08:38] LABS: POTASSIUM 4.1 mmol/L (3.5-5.1)
[2024-11-13 08:47] LABS: ALBUMIN 2.4 g/dl (3.4-5.0); BLOOD UREA NITROGEN 24.2 mg/dL (7-18); MAGNESIUM 2.4 mg/dL (1.8-2.4)
[2024-11-13 08:51] LABS: BILIRUBIN,TOTAL 0.2 mg/dL (0.2-1)
[2024-11-13 08:52] LABS: TOT PROT 5.9 g/dl (6.4-8.2)
[2024-11-13] MEDS: LISINOPRIL 10 MG TABLET PO SCH (09:42)
[2024-11-13] MEDS: CLOPIDOGREL BISULFATE 75 MG TABLET (FP) PO SCH (09:42)
[2024-11-13] MEDS: ASPIRIN 81 MG CHEWABLE TABLETS PO SCH (09:42)
[2024-11-13] MEDS: COLLAGENASE CLOSTRIDIUM HIST. 30 GRAMS TUBE TP SCH (09:46)
[2024-11-13] MEDS: PATIENT'S OWN MEDICATION (NON-FORMULARY) (Dapagliflozin Propanediol 10 MG) PO SCH (11:05)
[2024-11-13] MEDS: HEPARIN NA (PORCINE) 5,000 UNITS/ML 1ML VIAL SQ SCH (21:44)
[2024-11-14 08:23] LABS: ABSOLUTE IMMATURE GRANULOCYTES 0.04 x10^3/uL (0.0-0.031); BASOPHILS # 0.05 x10^3/uL (0.01-0.08); EOSINOPHIL % 1.6 % (0.8-7.0); EOSINOPHILS # 0.13 x10^3/uL (0.04-0.54); HEMATOCRIT 34.3 % (40.1-51.0); HEMOGLOBIN 11.5 g/dL (13.7-17.5); MCHC 33.5 g/dl (32.3-36.5); MEAN CELL VOLUME 89.1 fl (79.0-92.2); MEAN PLT VOLUME 10.4 fl (9.4-12.4); MONOCYTE # 0.88 x10^3/uL (0.30-0.82); MONOCYTE % 10.5 % (5.3-12.2); PLATELET COUNT 342 x10^3/uL (163-337); RDW 12.5 % (12.6-16.6)
[2024-11-14 10:07] LABS: BILIRUBIN,TOTAL 0.2 mg/dL (0.2-1)
[2024-11-14 10:24] LABS: CALCIUM 8.9 mg/dL (8.5-10.1); CREATININE 0.8 mg/dL (0.55-1.3)
[2024-11-14 10:25] LABS: ALBUMIN 2.5 g/dl (3.4-5.0); BLOOD UREA NITROGEN 21.4 mg/dL (7-18); MAGNESIUM 2.2 mg/dL (1.8-2.4)
[2024-11-14 10:30] LABS: TOT PROT 6.2 g/dl (6.4-8.2)
[2024-11-14] MEDS: ACETAMINOPHEN 325 MG TABLET (FP) PO PRN (11:11)
[2024-11-14] MEDS: ERTAPENEM SODIUM 1 GM in SODIUM CHLORIDE 50 ML IVPB SCH (15:14)
[2024-11-15] MEDS: oxyCODONE HCL 5 MG TABLET PO PRN (04:47)
[2024-11-15 08:22] LABS: ABSOLUTE IMMATURE GRANULOCYTES 0.04 x10^3/uL (0.0-0.031); BASOPHILS # 0.05 x10^3/uL (0.01-0.08); EOSINOPHILS # 0.25 x10^3/uL (0.04-0.54); HEMATOCRIT 35.1 % (40.1-51.0); HEMOGLOBIN 11.7 g/dL (13.7-17.5); MCHC 33.3 g/dl (32.3-36.5); MEAN CELL VOLUME 89.1 fl (79.0-92.2); MEAN PLT VOLUME 10.4 fl (9.4-12.4); MONOCYTE # 0.84 x10^3/uL (0.30-0.82); PLATELET COUNT 344 x10^3/uL (163-337); RDW 12.3 % (12.6-16.6)
[2024-11-15 08:48] LABS: POTASSIUM 4.2 mmol/L (3.5-5.1)
[2024-11-15 08:52] LABS: CALCIUM 9.2 mg/dL (8.5-10.1)
[2024-11-15 08:53] LABS: ALBUMIN 2.6 g/dl (3.4-5.0); BLOOD UREA NITROGEN 20.4 mg/dL (7-18); MAGNESIUM 2.2 mg/dL (1.8-2.4)
[2024-11-15 08:56] LABS: CREATININE 0.8 mg/dL (0.55-1.3)
[2024-11-15 08:57] LABS: BILIRUBIN,TOTAL 0.2 mg/dL (0.2-1)
[2024-11-15 08:58] LABS: TOT PROT 6.4 g/dl (6.4-8.2)
[2024-11-15 14:44] VITALS: BP 139/77; PULSE 83; TEMP 97.8
== END 2024-11-15 18:57 | DRG 271 ==
LOC: JER 12:02 → JERBED 17:02 → J8W 19:54
PROVIDERS: ADMIT Internal Medicine; ATTEND Nurse Practitioner Family
PROC: 04CN3ZZ Extirpation of Matter from Left Popliteal Artery, Percutaneous Approach (ICD-10-PCS; 2024-11-12)
PROC: 047L3ZZ Dilation of Left Femoral Artery, Percutaneous Approach (ICD-10-PCS; 2024-11-12)
PROC: 047N3ZZ Dilation of Left Popliteal Artery, Percutaneous Approach (ICD-10-PCS; 2024-11-12)
PROC: 04CL3ZZ Extirpation of Matter from Left Femoral Artery, Percutaneous Approach (ICD-10-PCS; principal; 2024-11-12 16:00)
DX: E11.51 Type 2 diabetes mellitus with diabetic peripheral angiopathy without gangrene (principal); L03.116 Cellulitis of left lower limb; Z16.12 Extended spectrum beta lactamase (ESBL) resistance; E11.69 Type 2 diabetes mellitus with other specified complication; E11.621 Type 2 diabetes mellitus with foot ulcer; L97.529 Non-pressure chronic ulcer of other part of left foot with unspecified severity; I10 Essential (primary) hypertension; E78.5 Hyperlipidemia, unspecified; F03.90 Unspecified dementia, unspecified severity, without behavioral disturbance, psychotic disturbance, mood disturbance, and anxiety; A49.9 Bacterial infection, unspecified; E11.628 Type 2 diabetes mellitus with other skin complications; L08.9 Local infection of the skin and subcutaneous tissue, unspecified
CPT/HCPCS: 36415; 73630-TC-LT; 73720-LT; 80053; 82962; 83036; 83735; 84100; 84132; 85025; 85610; 85651; 85730; 86140; 86850; 86900; 86901; 87070; 87077; 87186; 87205; 87635; 93005; 93010; 93922; 93926-TC; 94760; 97116-GP; 97161-GP; 99285-25; A9576; C1769; G0463-25; J0131; J1644

== ENCOUNTER 2024-12-19 06:39 | Day surgery (SDC) | payer OTHER, BC ==
[2024-12-18 11:09] VITALS: BMI 21.8
[2024-12-19 07:36] VITALS: RESP 20
[2024-12-19] MEDS ORDERED: PROPOFOL 20 ML ONE (09:16)
[2024-12-19] MEDS ORDERED: LIDOCAINE HCL 1%, 10 MG/ML (20ML VIAL) ONE (09:42)
[2024-12-19] MEDS ORDERED: LACTATED RINGERS SOLUTION 1,000 ML IV SCH (09:45)
[2024-12-19] MEDS ORDERED: ePHEDrine SULFATE 50 MG/1 ML AMPULE ONE (10:16)
[2024-12-19] MEDS ORDERED: ceFAZolin SODIUM 1 GM VIAL ONE ×2 (10:19)
[2024-12-19] MEDS: ceFAZolin SODIUM 1 GM VIAL IVPB ONE (10:21)
[2024-12-19] MEDS ORDERED: IBUPROFEN 600 MG TABLET (FP) PO PRN (11:06)
[2024-12-19 14:38] VITALS: BP 145/73; PULSE 81; TEMP 97.3
== END 2024-12-19 13:05 | disposition home or self-care (01) ==
LOC: JASU-SURG 06:39
PROVIDERS: ATTEND Surgery
PROC: 0HRNXJZ Replacement of Left Foot Skin with Synthetic Substitute, External Approach (ICD-10-PCS; 2024-12-19)
PROC: 0JBR0ZZ Excision of Left Foot Subcutaneous Tissue and Fascia, Open Approach (ICD-10-PCS; principal; 2024-12-19 10:00)
DX: L97.828 Non-pressure chronic ulcer of other part of left lower leg with other specified severity (principal)
CPT/HCPCS: 11043; 15271; Q4100; 82010; 82962; 88304-TC; 94760

== ENCOUNTER 2025-02-11 15:55 | Inpatient (IN) | payer OTHER, BC ==
[2025-02-11] MEDS ORDERED: CEFEPIME HCL/D5W 1 GM/50 ML BAG IVPB ONE (17:46)
[2025-02-11] MEDS: CEFEPIME HCL/D5W 1 GM/50 ML BAG IVPB ONE (17:59)
[2025-02-11 18:07] LABS: ABSOLUTE IMMATURE GRANULOCYTES 0.02 x10^3/uL (0.0-0.031); BASOPHILS # 0.06 x10^3/uL (0.01-0.08); EOSINOPHIL % 3.0 % (0.8-7.0); EOSINOPHILS # 0.23 x10^3/uL (0.04-0.54); MCHC 32.5 g/dl (32.3-36.5); MEAN CELL VOLUME 93.4 fl (79.0-92.2); MEAN PLT VOLUME 10.4 fl (9.4-12.4); MONOCYTE # 0.83 x10^3/uL (0.30-0.82); MONOCYTE % 10.9 % (5.3-12.2); RDW 13.2 % (12.6-16.6)
[2025-02-11 18:14] LABS: INR 1.25 (0.83-1.09); PROTHROMBIN TIME (PATIENT) 13.7 SEC (9.7-13.0)
[2025-02-11] MEDS: CEFEPIME HCL 1 GM VIAL (RESTRICTED TO ID) IVPB ONE (18:18)
[2025-02-11] MEDS: VANCOMYCIN 1,000 MG in DEXTROSE 5%-WATER - 250 ML IVPB ONE (18:18)
[2025-02-11 18:26] LABS: CO2 26.0 mmol/L (21-32); GLUCOSE,RANDOM 152.0 mg/dL (74-106)
[2025-02-11 18:29] LABS: CREATININE 1.1 mg/dL (0.55-1.3); SGOT/AST 12.0 U/L (15-37); SGPT/ALT 26.0 U/L (13-61)
[2025-02-11 18:31] LABS: TOT PROT 7.0 g/dl (6.4-8.2)
[2025-02-11 18:32] LABS: ALK PHOS 60.0 U/L (45-117)
[2025-02-11] MEDS ORDERED: VANCOMYCIN 1 GM PREMIX (F) 1 GM/200 ML BAG ONE (19:10)
[2025-02-11] MEDS: VANCOMYCIN 1,000 MG in DEXTROSE 5%-WATER - 200 ML IVPB ONE (19:25)
[2025-02-11 19:45] LABS: ERYTHROCYTE SEDIMENTATION RATE 23 mm/hr (0-20)
[2025-02-11 19:49] LABS: HIV INTERPRETATION NEGATIVE (NEGATIVE)
[2025-02-11 19:52] LABS: HCV DIAGNOSTIC IN-HOUSE W/RFLX NON-REACTIVE (NONREACTIVE)
[2025-02-11] MEDS: ENOXAPARIN NA (PORCINE) 40 MG/0.4 ML DISP.SYRIN SQ SCH (21:25)
[2025-02-11] MEDS: INSULIN ASPART SLIDING SCALE (NOVOLOG) 1 VIAL SQ SCH (22:20)
[2025-02-11] MEDS: GABAPENTIN 100 MG CAPSULE PO SCH (22:24)
[2025-02-11] MEDS: ATORVASTATIN CA 20 MG TABLET (FP) PO SCH (22:24)
[2025-02-11] MEDS: MEROPENEM 1 GM in DEXTROSE 5%-WATER 100 ML IVPB SCH (22:25)
[2025-02-11] MEDS: INSULIN GLARGINE (LANTUS) 100 UNITS/ML UNITS SQ SCH (22:26)
[2025-02-11 23:02] VITALS: BMI 22.3
[2025-02-12] MEDS: VANCOMYCIN/WATER FOR INJ (PEG) 1,000 MG/200 ML BAG IVPB SCH (06:13)
[2025-02-12 08:30] LABS: ABSOLUTE IMMATURE GRANULOCYTES 0.01 x10^3/uL (0.0-0.031); BASOPHILS # 0.04 x10^3/uL (0.01-0.08); EOSINOPHIL % 3.9 % (0.8-7.0); EOSINOPHILS # 0.22 x10^3/uL (0.04-0.54); MCHC 33.6 g/dl (32.3-36.5); MEAN CELL VOLUME 91.6 fl (79.0-92.2); MEAN PLT VOLUME 10.7 fl (9.4-12.4); MONOCYTE # 0.49 x10^3/uL (0.30-0.82); MONOCYTE % 8.7 % (5.3-12.2); RDW 13.2 % (12.6-16.6)
[2025-02-12 09:15] LABS: LDL CHOLESTEROL (ONLY SJRH) 83 mg/dL (5-100)
[2025-02-12 09:39] LABS: CO2 26.0 mmol/L (21-32); GLUCOSE,RANDOM 169.0 mg/dL (74-106)
[2025-02-12 09:40] LABS: CREATININE 1.1 mg/dL (0.55-1.3); SGOT/AST 9.0 U/L (15-37); SGPT/ALT 23.0 U/L (13-61)
[2025-02-12 09:41] LABS: TOT PROT 6.2 g/dl (6.4-8.2)
[2025-02-12 09:43] LABS: ALK PHOS 52.0 U/L (45-117)
[2025-02-12] MEDS: LISINOPRIL 10 MG TABLET PO SCH (09:55)
[2025-02-12] MEDS: CLOPIDOGREL BISULFATE 75 MG TABLET (FP) PO SCH (09:56)
[2025-02-12] MEDS: ASPIRIN 81 MG CHEWABLE TABLETS PO SCH (10:00)
[2025-02-13 08:41] LABS: ABSOLUTE IMMATURE GRANULOCYTES 0.01 x10^3/uL (0.0-0.031); BASOPHILS # 0.05 x10^3/uL (0.01-0.08); EOSINOPHIL % 4.8 % (0.8-7.0); EOSINOPHILS # 0.23 x10^3/uL (0.04-0.54); MCHC 33.3 g/dl (32.3-36.5); MEAN CELL VOLUME 90.7 fl (79.0-92.2); MEAN PLT VOLUME 10.8 fl (9.4-12.4); MONOCYTE # 0.42 x10^3/uL (0.30-0.82); MONOCYTE % 8.8 % (5.3-12.2); RDW 13.1 % (12.6-16.6)
[2025-02-13 09:03] LABS: CO2 26.0 mmol/L (21-32)
[2025-02-13 09:04] LABS: GLUCOSE,RANDOM 122.0 mg/dL (74-106)
[2025-02-13 09:06] LABS: SGOT/AST 9.0 U/L (15-37); SGPT/ALT 18.0 U/L (13-61)
[2025-02-13 09:07] LABS: CREATININE 0.9 mg/dL (0.55-1.3)
[2025-02-13 09:08] LABS: TOT PROT 5.9 g/dl (6.4-8.2)
[2025-02-13 09:09] LABS: ALK PHOS 49.0 U/L (45-117)
[2025-02-13] MEDS: MEROPENEM 1 GM in DEXTROSE 5%-WATER 100 ML IVPB SCH (17:34)
[2025-02-13] MEDS: VANCOMYCIN 1,000 MG in DEXTROSE 5%-WATER - 250 ML IVPB SCH (17:36)
[2025-02-13] MEDS: ERTAPENEM SODIUM 1 GM in SODIUM CHLORIDE 50 ML IVPB SCH (17:40)
[2025-02-13] MEDS ORDERED: INSULIN ASPART SLIDING SCALE (NOVOLOG) 1 VIAL SQ ONE (19:46)
[2025-02-14 08:33] LABS: ABSOLUTE IMMATURE GRANULOCYTES 0.01 x10^3/uL (0.0-0.031); BASOPHILS # 0.06 x10^3/uL (0.01-0.08); EOSINOPHIL % 3.4 % (0.8-7.0); EOSINOPHILS # 0.21 x10^3/uL (0.04-0.54); MCHC 33.8 g/dl (32.3-36.5); MEAN CELL VOLUME 89.4 fl (79.0-92.2); MEAN PLT VOLUME 11.1 fl (9.4-12.4); MONOCYTE # 0.52 x10^3/uL (0.30-0.82); MONOCYTE % 8.5 % (5.3-12.2); RDW 13.0 % (12.6-16.6)
[2025-02-14 09:14] LABS: CO2 24.0 mmol/L (21-32); GLUCOSE,RANDOM 148.0 mg/dL (74-106)
[2025-02-14 09:17] LABS: CREATININE 0.8 mg/dL (0.55-1.3); SGOT/AST 11.0 U/L (15-37); SGPT/ALT 19.0 U/L (13-61)
[2025-02-14 09:19] LABS: TOT PROT 6.5 g/dl (6.4-8.2)
[2025-02-14 09:20] LABS: ALK PHOS 51.0 U/L (45-117)
[2025-02-15 09:14] LABS: ABSOLUTE IMMATURE GRANULOCYTES 0.01 x10^3/uL (0.0-0.031); BASOPHILS # 0.04 x10^3/uL (0.01-0.08); EOSINOPHIL % 4.2 % (0.8-7.0); EOSINOPHILS # 0.20 x10^3/uL (0.04-0.54); MCHC 33.1 g/dl (32.3-36.5); MEAN CELL VOLUME 90.5 fl (79.0-92.2); MEAN PLT VOLUME 10.6 fl (9.4-12.4); MONOCYTE # 0.45 x10^3/uL (0.30-0.82); MONOCYTE % 9.5 % (5.3-12.2); RDW 13.2 % (12.6-16.6)
[2025-02-15 10:06] LABS: CO2 27.0 mmol/L (21-32); GLUCOSE,RANDOM 205.0 mg/dL (74-106)
[2025-02-15 10:09] LABS: CREATININE 0.9 mg/dL (0.55-1.3); SGOT/AST 12.0 U/L (15-37); SGPT/ALT 20.0 U/L (13-61)
[2025-02-15 10:10] LABS: TOT PROT 6.0 g/dl (6.4-8.2)
[2025-02-15 10:11] LABS: ALK PHOS 47.0 U/L (45-117)
[2025-02-15 21:10] VITALS: RESP 18
[2025-02-16 07:30] LABS: ABSOLUTE IMMATURE GRANULOCYTES 0.01 x10^3/uL (0.0-0.031); BASOPHILS # 0.05 x10^3/uL (0.01-0.08); EOSINOPHIL % 4.8 % (0.8-7.0); EOSINOPHILS # 0.28 x10^3/uL (0.04-0.54); MCHC 33.8 g/dl (32.3-36.5); MEAN CELL VOLUME 90.3 fl (79.0-92.2); MEAN PLT VOLUME 10.5 fl (9.4-12.4); MONOCYTE # 0.52 x10^3/uL (0.30-0.82); MONOCYTE % 9.0 % (5.3-12.2); RDW 13.1 % (12.6-16.6)
[2025-02-16 07:46] LABS: CO2 26.0 mmol/L (21-32); GLUCOSE,RANDOM 139.0 mg/dL (74-106); SGPT/ALT 24.0 U/L (13-61)
[2025-02-16 07:49] LABS: CREATININE 0.8 mg/dL (0.55-1.3); SGOT/AST 17.0 U/L (15-37)
[2025-02-16 07:51] LABS: TOT PROT 6.2 g/dl (6.4-8.2)
[2025-02-16 07:52] LABS: ALK PHOS 48.0 U/L (45-117)
[2025-02-17 07:46] LABS: ABSOLUTE IMMATURE GRANULOCYTES 0.01 x10^3/uL (0.0-0.031); BASOPHILS # 0.05 x10^3/uL (0.01-0.08); EOSINOPHIL % 4.9 % (0.8-7.0); EOSINOPHILS # 0.24 x10^3/uL (0.04-0.54); MCHC 33.3 g/dl (32.3-36.5); MEAN CELL VOLUME 90.9 fl (79.0-92.2); MEAN PLT VOLUME 10.4 fl (9.4-12.4); MONOCYTE # 0.42 x10^3/uL (0.30-0.82); MONOCYTE % 8.7 % (5.3-12.2); RDW 13.1 % (12.6-16.6)
[2025-02-17 09:20] LABS: CO2 25.0 mmol/L (21-32); GLUCOSE,RANDOM 201.0 mg/dL (74-106)
[2025-02-17 09:23] LABS: CREATININE 0.8 mg/dL (0.55-1.3); SGOT/AST 16.0 U/L (15-37); SGPT/ALT 29.0 U/L (13-61)
[2025-02-17 09:25] LABS: TOT PROT 6.1 g/dl (6.4-8.2)
[2025-02-17 09:26] LABS: ALK PHOS 49.0 U/L (45-117)
[2025-02-18] MEDS ORDERED: [UNRECOGNIZED DRUG - OTHER] TP SCH (09:15)
[2025-02-18 09:53] LABS: ABSOLUTE IMMATURE GRANULOCYTES 0.01 x10^3/uL (0.0-0.031); BASOPHILS # 0.06 x10^3/uL (0.01-0.08); EOSINOPHIL % 5.9 % (0.8-7.0); EOSINOPHILS # 0.30 x10^3/uL (0.04-0.54); MCHC 33.2 g/dl (32.3-36.5); MEAN CELL VOLUME 91.6 fl (79.0-92.2); MEAN PLT VOLUME 10.6 fl (9.4-12.4); MONOCYTE # 0.43 x10^3/uL (0.30-0.82); MONOCYTE % 8.4 % (5.3-12.2); RDW 13.0 % (12.6-16.6)
[2025-02-18 10:29] LABS: CO2 29.0 mmol/L (21-32); GLUCOSE,RANDOM 146.0 mg/dL (74-106)
[2025-02-18 10:32] LABS: SGPT/ALT 29.0 U/L (13-61)
[2025-02-18 10:33] LABS: CREATININE 0.85 mg/dL (0.55-1.3); SGOT/AST 14.0 U/L (15-37)
[2025-02-18 10:34] LABS: ALK PHOS 51.0 U/L (45-117); TOT PROT 6.6 g/dl (6.4-8.2)
[2025-02-18 15:47] VITALS: BP 112/57; PULSE 63; TEMP 97.7
[2025-02-18] MEDS: AMOX TR/POT CLAV 875MG/125MG TABLETS (FP) PO SCH (17:21)
== END 2025-02-18 21:37 | disposition home health service (06) | DRG 603 ==
LOC: JER 15:55 → JERBED 17:09 → J8W 21:49
PROVIDERS: ADMIT Internal Medicine; ATTEND Nurse Practitioner Acute Care
DX: L03.116 Cellulitis of left lower limb (principal); L97.429 Non-pressure chronic ulcer of left heel and midfoot with unspecified severity; M86.672 Other chronic osteomyelitis, left ankle and foot; E11.621 Type 2 diabetes mellitus with foot ulcer; E11.51 Type 2 diabetes mellitus with diabetic peripheral angiopathy without gangrene; I10 Essential (primary) hypertension; E78.5 Hyperlipidemia, unspecified
CPT/HCPCS: 36415; 73630-TC-LT; 73630-TC-RT-FY; 73718-TC-LT; 80053; 80061; 82962; 83036; 83735; 84100; 85025; 85610; 85651; 86140; 86803; 86850; 86900; 86901; 87389; 93005; 93010; 93922; 93926-TC; 99285-25

== ENCOUNTER 2025-03-16 12:12 | Inpatient (IN) | payer OTHER, BC ==
[2025-03-16 13:55] LABS: ABSOLUTE IMMATURE GRANULOCYTES 0.03 x10^3/uL (0.0-0.031); BASOPHILS # 0.05 x10^3/uL (0.01-0.08); EOSINOPHIL % 4.7 % (0.8-7.0); EOSINOPHILS # 0.39 x10^3/uL (0.04-0.54); MCHC 32.8 g/dl (32.3-36.5); MEAN CELL VOLUME 93.0 fl (79.0-92.2); MEAN PLT VOLUME 10.5 fl (9.4-12.4); MONOCYTE # 0.91 x10^3/uL (0.30-0.82); MONOCYTE % 11.0 % (5.3-12.2); RDW 12.7 % (12.6-16.6)
[2025-03-16] MEDS ORDERED: PIPERACILLIN/TAZOB 3.375 GM 3.375 GM/50 ML BAG IVPB ONE (14:02)
[2025-03-16 14:03] LABS: INR 1.12 (0.83-1.09); PROTHROMBIN TIME (PATIENT) 12.2 SEC (9.7-13.0)
[2025-03-16] MEDS ORDERED: VANCOMYCIN 1 GM PREMIX (F) 1 GM/200 ML BAG ONE (14:03)
[2025-03-16 14:06] LABS: ACTIVATED PTT 27.7 SECONDS (25.2-36.5)
[2025-03-16] MEDS: PIPERACILLIN/TAZOB 3.375 GM 3.375 GM in DEXTROSE 5%-WATER - 50 ML IVPB ONE (14:15)
[2025-03-16] MEDS: VANCOMYCIN 1,000 MG in DEXTROSE 5%-WATER - 250 ML IVPB ONE (14:33)
[2025-03-16 14:48] LABS: GLUCOSE,RANDOM 211.0 mg/dL (74-106)
[2025-03-16 14:49] LABS: TOT PROT 6.6 g/dl (6.4-8.2)
[2025-03-16 14:50] LABS: CO2 22.0 mmol/L (21-32)
[2025-03-16 14:52] LABS: ALK PHOS 42.0 U/L (40-150)
[2025-03-16 14:54] LABS: SGOT/AST 22.0 U/L (5-34); SGPT/ALT 10.0 U/L (0-55)
[2025-03-16 14:55] LABS: CREATININE 1.1 mg/dL (0.55-1.3)
[2025-03-16 15:16] LABS: HCV DIAGNOSTIC IN-HOUSE W/RFLX NON-REACTIVE (NONREACTIVE); HIV INTERPRETATION NEGATIVE (NEGATIVE)
[2025-03-16] MEDS ORDERED: ACETAMINOPHEN 1000 MG/100 ML BAG IVPB PRN (17:31)
[2025-03-16] MEDS: PIPERACILLIN/TAZOB 3.375 GM 3.375 GM in DEXTROSE 5%-WATER - 50 ML IVPB SCH (19:58)
[2025-03-16 21:09] VITALS: BMI 23.1
[2025-03-16] MEDS: GABAPENTIN 100 MG CAPSULE PO SCH (21:28)
[2025-03-16] MEDS: ATORVASTATIN CA 20 MG TABLET (FP) PO SCH (21:28)
[2025-03-16] MEDS: INSULIN ASPART SLIDING SCALE (NOVOLOG) 1 VIAL SQ SCH (22:25)
[2025-03-17] MEDS: LISINOPRIL 10 MG TABLET PO ONE (00:12)
[2025-03-17 08:10] LABS: ABSOLUTE IMMATURE GRANULOCYTES 0.02 x10^3/uL (0.0-0.031); BASOPHILS # 0.06 x10^3/uL (0.01-0.08); EOSINOPHIL % 6.7 % (0.8-7.0); EOSINOPHILS # 0.38 x10^3/uL (0.04-0.54); MCHC 32.2 g/dl (32.3-36.5); MEAN CELL VOLUME 94.5 fl (79.0-92.2); MEAN PLT VOLUME 11.0 fl (9.4-12.4); MONOCYTE # 0.50 x10^3/uL (0.30-0.82); MONOCYTE % 8.8 % (5.3-12.2); RDW 12.7 % (12.6-16.6)
[2025-03-17 09:20] LABS: GLUCOSE,RANDOM 284.0 mg/dL (74-106); TOT PROT 6.8 g/dl (6.4-8.2)
[2025-03-17 09:21] LABS: CO2 16.0 mmol/L (21-32)
[2025-03-17 09:23] LABS: ALK PHOS 41.0 U/L (40-150)
[2025-03-17 09:26] LABS: CREATININE 1.32 mg/dL (0.55-1.3); SGOT/AST 21.0 U/L (5-34); SGPT/ALT 10.0 U/L (0-55)
[2025-03-17] MEDS: CLOPIDOGREL BISULFATE 75 MG TABLET (FP) PO SCH (10:40)
[2025-03-17] MEDS: ASPIRIN COATED 81 MG TABLET.EC PO SCH (10:40)
[2025-03-17] MEDS: LISINOPRIL 10 MG TABLET PO SCH (10:40)
[2025-03-17] MEDS: ENOXAPARIN NA (PORCINE) 40 MG/0.4 ML DISP.SYRIN SQ SCH (10:41)
[2025-03-17] MEDS: EMPAGLIFLOZIN (JARDIANCE) 10 MG TABLET PO SCH (10:47)
[2025-03-17] MEDS: PANTOPRAZOLE 40 MG TABLET PO SCH (17:54)
[2025-03-17] MEDS: ERTAPENEM SODIUM 1 GM in SODIUM CHLORIDE 50 ML IVPB SCH (21:40)
[2025-03-18] MEDS: EMPAGLIFLOZIN (JARDIANCE) 10 MG TABLET PO SCH (06:45)
[2025-03-18 08:19] LABS: ABSOLUTE IMMATURE GRANULOCYTES 0.01 x10^3/uL (0.0-0.031); BASOPHILS # 0.06 x10^3/uL (0.01-0.08); EOSINOPHIL % 7.7 % (0.8-7.0); EOSINOPHILS # 0.48 x10^3/uL (0.04-0.54); MCHC 33.5 g/dl (32.3-36.5); MEAN CELL VOLUME 91.8 fl (79.0-92.2); MEAN PLT VOLUME 10.7 fl (9.4-12.4); MONOCYTE # 0.62 x10^3/uL (0.30-0.82); MONOCYTE % 10.0 % (5.3-12.2); RDW 12.7 % (12.6-16.6)
[2025-03-18 09:14] LABS: GLUCOSE,RANDOM 168.0 mg/dL (74-106); TOT PROT 5.9 g/dl (6.4-8.2)
[2025-03-18 09:15] LABS: CO2 22.0 mmol/L (21-32)
[2025-03-18 09:17] LABS: ALK PHOS 37.0 U/L (40-150)
[2025-03-18 09:20] LABS: CREATININE 0.99 mg/dL (0.55-1.3); SGOT/AST 14.0 U/L (5-34); SGPT/ALT 10.0 U/L (0-55)
[2025-03-18] MEDS: AMINO ACIDS/PROTEIN HYDROLYS 30 ML LIQUID.PKT PO SCH (16:47)
[2025-03-19] MEDS: PIPERACILLIN/TAZOB 3.375 GM 3.375 GM in DEXTROSE 5%-WATER - 50 ML IVPB SCH (08:26)
[2025-03-19] MEDS: COLLAGENASE CLOSTRIDIUM HIST. 30 GRAMS TUBE TP SCH (18:09)
[2025-03-21 08:02] LABS: MCHC 33.0 g/dl (32.3-36.5); MEAN CELL VOLUME 92.4 fl (79.0-92.2); MEAN PLT VOLUME 10.7 fl (9.4-12.4); RDW 12.6 % (12.6-16.6)
[2025-03-21 08:46] LABS: GLUCOSE,RANDOM 253.0 mg/dL (74-106); TOT PROT 6.3 g/dl (6.4-8.2)
[2025-03-21 08:49] LABS: ALK PHOS 38.0 U/L (40-150)
[2025-03-21 08:52] LABS: CREATININE 0.97 mg/dL (0.55-1.3); SGOT/AST 12.0 U/L (5-34); SGPT/ALT 9.0 U/L (0-55)
[2025-03-21 09:06] LABS: CO2 17.0 mmol/L (21-32)
[2025-03-22 08:29] LABS: MCHC 32.9 g/dl (32.3-36.5); MEAN CELL VOLUME 93.4 fl (79.0-92.2); MEAN PLT VOLUME 10.9 fl (9.4-12.4); RDW 12.5 % (12.6-16.6)
[2025-03-22 08:38] LABS: INR 1.11 (0.83-1.09); PROTHROMBIN TIME (PATIENT) 12.1 SEC (9.7-13.0)
[2025-03-22 08:41] LABS: ACTIVATED PTT 31.0 SECONDS (25.2-36.5)
[2025-03-22 09:35] LABS: GLUCOSE,RANDOM 175.0 mg/dL (74-106)
[2025-03-22 09:36] LABS: CO2 23.0 mmol/L (21-32)
[2025-03-22 09:40] LABS: CREATININE 1.13 mg/dL (0.55-1.3)
[2025-03-22] MEDS ORDERED: LIDOCAINE HCL 1%, 10 MG/ML (20ML VIAL) ONE (13:18)
[2025-03-22] MEDS ORDERED: HEPARIN NA (PORCINE) 5,000 UNITS/ML 1ML VIAL ONE (13:19)
[2025-03-22] MEDS ORDERED: ONDANSETRON 4 MG/2 ML VIAL IVPUSH PRN ×2 (16:27→19:47)
[2025-03-22] MEDS ORDERED: MIDAZOLAM HCL 2 MG/2 ML SINGLE DOSE VIAL ONE (17:04)
[2025-03-22] MEDS ORDERED: KETAMINE HCL 200 MG/20 ML VIAL ONE (17:29)
[2025-03-22] MEDS ORDERED: PROPOFOL 20 ML ONE (17:43)
[2025-03-22] MEDS: LIDOCAINE HCL 1%, 10 MG/ML (20ML VIAL) INF ONE ×2 (18:11)
[2025-03-22] MEDS ORDERED: PROTAMINE SULFATE 50 MG/5 ML VIAL ONE (18:49)
[2025-03-22] MEDS: LACTATED RINGERS SOLUTION 1,000 ML IV SCH ×2 (19:55→21:28)
[2025-03-22] MEDS: GABAPENTIN 100 MG CAPSULE PO SCH (21:28)
[2025-03-22] MEDS: ERTAPENEM SODIUM 1 GM in SODIUM CHLORIDE 50 ML IVPB SCH (21:28)
[2025-03-22] MEDS: ATORVASTATIN CA 20 MG TABLET (FP) PO SCH (21:29)
[2025-03-22] MEDS: amLODIPine BESYLATE 5 MG TABLET (FP) PO ONE (21:29)
[2025-03-22] MEDS: INSULIN ASPART SLIDING SCALE (NOVOLOG) 1 VIAL SQ SCH (21:35)
[2025-03-23] MEDS: EMPAGLIFLOZIN (JARDIANCE) 10 MG TABLET PO SCH (06:24)
[2025-03-23] MEDS: AMINO ACIDS/PROTEIN HYDROLYS 30 ML LIQUID.PKT PO SCH (08:29)
[2025-03-23 09:53] VITALS: RESP 18
[2025-03-23] MEDS: LISINOPRIL 10 MG TABLET PO SCH (09:53)
[2025-03-23] MEDS: PANTOPRAZOLE 40 MG TABLET PO SCH (09:53)
[2025-03-23] MEDS: CLOPIDOGREL BISULFATE 75 MG TABLET (FP) PO SCH (09:54)
[2025-03-23] MEDS: ENOXAPARIN NA (PORCINE) 40 MG/0.4 ML DISP.SYRIN SQ SCH (09:54)
[2025-03-23] MEDS: ASPIRIN COATED 81 MG TABLET.EC PO SCH (09:54)
[2025-03-23] MEDS: COLLAGENASE CLOSTRIDIUM HIST. 30 GRAMS TUBE TP SCH (09:56)
[2025-03-25 06:43] LABS: MCHC 32.2 g/dl (32.3-36.5); MEAN CELL VOLUME 95.5 fl (79.0-92.2); MEAN PLT VOLUME 10.9 fl (9.4-12.4); RDW 12.5 % (12.6-16.6)
[2025-03-25 07:19] LABS: GLUCOSE,RANDOM 116.0 mg/dL (74-106)
[2025-03-25 07:20] LABS: TOT PROT 6.0 g/dl (6.4-8.2)
[2025-03-25 07:21] LABS: CO2 20.0 mmol/L (21-32)
[2025-03-25 07:22] LABS: ALK PHOS 36.0 U/L (40-150)
[2025-03-25 07:25] LABS: CREATININE 1.01 mg/dL (0.55-1.3); SGOT/AST 16.0 U/L (5-34); SGPT/ALT 10.0 U/L (0-55)
[2025-03-26 09:21] VITALS: BP 139/60; PULSE 78; TEMP 98.2
== END 2025-03-26 21:29 | disposition home health service (06) | DRG 271 ==
LOC: JER 12:12 → JERBED 15:10 → OBSVTOIN 17:28 → J7W 18:51
PROVIDERS: ADMIT Family Medicine; ATTEND Family Medicine
PROC: 04CN3ZZ Extirpation of Matter from Left Popliteal Artery, Percutaneous Approach (ICD-10-PCS; 2025-03-22)
PROC: 04CS3ZZ Extirpation of Matter from Left Posterior Tibial Artery, Percutaneous Approach (ICD-10-PCS; 2025-03-22)
PROC: 047L3ZZ Dilation of Left Femoral Artery, Percutaneous Approach (ICD-10-PCS; 2025-03-22)
PROC: 047S3ZZ Dilation of Left Posterior Tibial Artery, Percutaneous Approach (ICD-10-PCS; 2025-03-22)
PROC: 047N3Z1 Dilation of Left Popliteal Artery using Drug-Coated Balloon, Percutaneous Approach (ICD-10-PCS; 2025-03-22)
PROC: 04CL3ZZ Extirpation of Matter from Left Femoral Artery, Percutaneous Approach (ICD-10-PCS; principal; 2025-03-22 16:30)
DX: E11.51 Type 2 diabetes mellitus with diabetic peripheral angiopathy without gangrene (principal); L03.116 Cellulitis of left lower limb; I10 Essential (primary) hypertension; E78.5 Hyperlipidemia, unspecified; E11.65 Type 2 diabetes mellitus with hyperglycemia; L97.529 Non-pressure chronic ulcer of other part of left foot with unspecified severity
CPT/HCPCS: 36415; 73610-TC-LT-FY; 73630-TC-LT; 76000-TC-FY; 80048; 80053; 82962; 83036; 83735; 84100; 85025; 85027; 85610; 85651; 85730; 86140; 86803; 86850; 86900; 86901; 87040; 87070; 87205; 87389; 93005; 93010; 93922; 93926-TC; 94760; 97597; 99285-25; C1760; C1769; C1894; E0186; G0378; G0480

== ENCOUNTER 2025-04-11 12:10 | Day surgery (SDC) | payer OTHER, BC ==
[2025-04-11] MEDS: ERTAPENEM SODIUM 1 GM in SODIUM CHLORIDE 50 ML IVPB ONE (12:40)
[2025-04-11 14:02] VITALS: BP 151/70; PULSE 60; RESP 18; TEMP 98.6
== END 2025-04-11 14:03 | disposition home or self-care (01) ==
LOC: FINFUSION 12:10 → FM/S 12:12 → FINFUSION 14:03
PROVIDERS: ATTEND Internal Medicine Infectious Disease
DX: E11.621 Type 2 diabetes mellitus with foot ulcer (principal); Z79.4 Long term (current) use of insulin; Z86.14 Personal history of Methicillin resistant Staphylococcus aureus infection
CPT/HCPCS: 15275; 96365; A6022; A6260; Q4133

== ENCOUNTER 2025-04-13 11:35 | Day surgery (SDC) | payer OTHER, BC ==
[2025-04-13] MEDS: ERTAPENEM SODIUM 1 GM in SODIUM CHLORIDE 50 ML IVPB SCH (12:03)
[2025-04-13 12:51] VITALS: BP 134/57; PULSE 56; RESP 19; TEMP 97.7
== END 2025-04-13 12:45 | disposition home or self-care (01) ==
LOC: FINFUSION 11:35 → FM/S 11:36 → FINFUSION 12:45
PROVIDERS: ATTEND Internal Medicine Infectious Disease
DX: E11.621 Type 2 diabetes mellitus with foot ulcer (principal); Z79.4 Long term (current) use of insulin; Z86.14 Personal history of Methicillin resistant Staphylococcus aureus infection
CPT/HCPCS: 96365

== ENCOUNTER 2025-04-14 12:03 | Day surgery (SDC) | payer OTHER, BC ==
[2025-04-14] MEDS: ERTAPENEM SODIUM 1 GM in SODIUM CHLORIDE 50 ML IVPB ONE (12:46)
[2025-04-14 14:06] VITALS: BP 126/48; PULSE 56; RESP 18; TEMP 98.2
== END 2025-04-14 13:20 | disposition home or self-care (01) ==
LOC: FINFUSION 12:03 → FM/S 12:08 → FINFUSION 13:20
PROVIDERS: ATTEND Internal Medicine Infectious Disease
DX: E11.621 Type 2 diabetes mellitus with foot ulcer (principal); Z79.4 Long term (current) use of insulin; Z86.14 Personal history of Methicillin resistant Staphylococcus aureus infection
CPT/HCPCS: 96365

== ENCOUNTER 2025-04-18 12:18 | Day surgery (SDC) | payer OTHER, BC ==
[2025-04-18] MEDS: ERTAPENEM SODIUM 1 GM in SODIUM CHLORIDE 50 ML IVPB ONE (12:50)
[2025-04-18 14:48] VITALS: BP 151/89; PULSE 74; RESP 18; TEMP 98.2
== END 2025-04-18 14:53 | disposition home or self-care (01) ==
LOC: FINFUSION 12:18 → FM/S 12:21 → FINFUSION 14:53
PROVIDERS: ATTEND Internal Medicine Infectious Disease
DX: E11.621 Type 2 diabetes mellitus with foot ulcer (principal)
CPT/HCPCS: 96365

== ENCOUNTER 2025-04-22 11:44 | Day surgery (SDC) | payer OTHER, BC ==
[2025-04-22] MEDS: ERTAPENEM SODIUM 1 GM in SODIUM CHLORIDE 50 ML IVPB ONE (12:08)
[2025-04-22 13:39] VITALS: BP 134/60; PULSE 64; RESP 18; TEMP 97.9
== END 2025-04-22 13:41 | disposition home or self-care (01) ==
LOC: FINFUSION 11:44 → FM/S 12:03 → FINFUSION 13:41
PROVIDERS: ATTEND Internal Medicine Infectious Disease
DX: E11.621 Type 2 diabetes mellitus with foot ulcer (principal); Z79.4 Long term (current) use of insulin; Z86.14 Personal history of Methicillin resistant Staphylococcus aureus infection
CPT/HCPCS: 96365

== ENCOUNTER 2025-04-29 11:17 | Day surgery (SDC) | payer OTHER, BC ==
[2025-04-29] MEDS: ERTAPENEM SODIUM 1 GM in SODIUM CHLORIDE 50 ML IVPB ONE (11:33)
[2025-04-29 12:21] VITALS: BP 108/72; PULSE 86; RESP 16; TEMP 97.6
== END 2025-04-29 12:21 | disposition home or self-care (01) ==
LOC: FINFUSION 11:17 → FM/S 11:18 → FINFUSION 12:21
PROVIDERS: ATTEND Internal Medicine Infectious Disease
DX: E11.621 Type 2 diabetes mellitus with foot ulcer (principal); Z79.4 Long term (current) use of insulin; Z86.14 Personal history of Methicillin resistant Staphylococcus aureus infection
CPT/HCPCS: 96365

== ENCOUNTER 2025-04-30 11:56 | Day surgery (SDC) | payer OTHER, BC ==
[2025-04-30] MEDS: ERTAPENEM SODIUM 1 GM in SODIUM CHLORIDE 50 ML IVPB ONE (12:20)
[2025-04-30 13:42] VITALS: BP 144/56; PULSE 57; RESP 17; TEMP 97.8
== END 2025-04-30 13:10 | disposition home or self-care (01) ==
LOC: FINFUSION 11:56 → FM/S 11:57 → FINFUSION 13:10
PROVIDERS: ATTEND Internal Medicine Infectious Disease
DX: E11.621 Type 2 diabetes mellitus with foot ulcer (principal); Z86.14 Personal history of Methicillin resistant Staphylococcus aureus infection; Z79.4 Long term (current) use of insulin
CPT/HCPCS: 96365

== ENCOUNTER 2025-05-01 11:15 | Day surgery (SDC) | payer OTHER, BC ==
[2025-05-01] MEDS: ERTAPENEM SODIUM 1 GM in SODIUM CHLORIDE 50 ML IVPB ONE (11:39)
[2025-05-01 12:35] VITALS: BP 131/58; PULSE 60; RESP 17; TEMP 97.9
== END 2025-05-01 12:30 | disposition home or self-care (01) ==
LOC: FINFUSION 11:15 → FM/S 11:16 → FINFUSION 12:30
PROVIDERS: ATTEND Internal Medicine Infectious Disease
DX: E11.621 Type 2 diabetes mellitus with foot ulcer (principal); Z86.14 Personal history of Methicillin resistant Staphylococcus aureus infection; Z79.4 Long term (current) use of insulin
CPT/HCPCS: 96365

== ENCOUNTER 2025-05-02 15:36 | Day surgery (SDC) | payer OTHER, BC ==
[2025-05-02] MEDS: ERTAPENEM SODIUM 1 GM in SODIUM CHLORIDE 50 ML IVPB ONE (16:28)
[2025-05-02 17:09] VITALS: BP 140/72; PULSE 74; RESP 16; TEMP 98.6
== END 2025-05-02 17:58 | disposition home or self-care (01) ==
LOC: FINFUSION 15:36 → FM/S 15:36 → FINFUSION 17:58
PROVIDERS: ATTEND Internal Medicine Infectious Disease
DX: E11.621 Type 2 diabetes mellitus with foot ulcer (principal); Z86.14 Personal history of Methicillin resistant Staphylococcus aureus infection; Z79.4 Long term (current) use of insulin
CPT/HCPCS: 96365